=== PATIENT | female | born 1975 | race Hispanic/Latino ===

== ENCOUNTER 2020-02-25 00:03 | Emergency (ER) | payer OTHER ==
[~2020-02-25] VITALS: Ht 165.1 cm; Wt 147.4 kg
--- NOTE | 2020-02-25 00:23 | NUR ---
PT RETURNED TO RM 3. AWAITING XR RESULTS
[2020-02-25] MEDS ORDERED: XANAX0.5 MG (00:25)
[2020-02-25] MEDS ORDERED: LABETALOL HCL100 MG PO (00:25)
[2020-02-25] MEDS ORDERED: LEXAPRO10 MG PO (00:27)
--- NOTE | 2020-02-25 00:39 | NUR ---
TOLD PT TO TAKE ANOTHER OF HER XANAX 0.5 SHE IS STILL HAVING PROBLEMS WITH HER ANXIETY. PT'S IS DRIVING . AWAITING XR RESULTS
--- OUTSIDE RECORDS SUMMARY | 2020-02-25 00:39 | XMS REPORT | Continuity of Care Document ---
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 Role Phone [employer] Unavailable Un available Problems Problem Status Onset Date Classification Date Reported Comments Source RIGHT HAND CARPAL TUNNEL Active 07/14/2016 [facility] VAGINAL DEL Active 11/29/2015 [facility] Discharge Diagnosis: Atrial fibrillation 11/05/2015 11/08/2015 [facility] PALPITATIONS Active 11/05/2015 [facility] Patient currently (finding) Resolved 06/07/2014 Problem 02/25/2017 [facility] CHILDBIRTH Active 04/13/2014 [facility] INDUCTION Active 04/13/2014 [facility] Discharge Diagnosis: beta charlene withdr awal/rebound; palpitations/IUP 10/24/2013 10/26/2013 [facility] RAPID HEART RATE Active 10/24/2013 [facility] Overweight (finding) Active 05/04/2013 Problem 02/25/2017 Data migrated from [employer] on 12/10. [facility] Bronchitis (disorder) Resolved 12/15/2012 Problem 02/25/2017 Data migrated from [employer] on 01/28. [facility] OTHER Active 10/13/2012 [facility] ANXIETY Active 01/16/2012 [facility] Panic disorder (disorder) Acti ve 11/06/2011 Problem 02/25/2017 Data migrated from [employer] on 12/10. [facility] Low back strain (disorder) Res olved 06/28/2011 Problem 02/25/2017 Data migrated from [employer] on 01/28. [facility] HIGH BLOOD PRESSURE Active 03/24/2011 [facility] Acute bronchitis with bronchospasm (disorder) Resolved 03/22/2011 Problem 02/25/2017 Data migrated from [employer] on 01/28/15. [facility] INCOMPLETE Active 10/07/2010 [facility] VAGINAL BLEEDING Active 10/06/2010 [facility] AB 632/CPT 12287 Active 10/04/2010 [facility] LESS THAN 14 WEEKS-- BRADYCARDIA Active 09/28/[address] VAG BLEED Active 06/16/2010 [facility] Acute maxillary sinusitis (disorder) Resolved 02/27/2009 Problem 02/25/2017 Data migrated from [employer] on 01/28. Data migrated from [employer] on 01/28/15. [facility] [place] Allergic rhinitis (disorder) A ctive 11/30/2008 Problem 02/25/2017 Data migrated from [employer] on 12/10. [facility] Fever (finding) Resolved 11/30/2008 Problem 02/25/2017 Data migrated from [employer] on 01/27. [facility] Pharyngitis (disorder) Resolved 11/30/2008 Problem 02/25/2017 Data migrated from [employer] on 01/28. [facility] Upper respiratory infection (disorder) Resolved 11/30/2008 Problem 02/25/2017 Data migrated from [employer] on 01/28/15. Data migrated from [employer] on 01/28/15. Data migrated from [employer] on 01/28/15. [facility] Acute bronchitis (disorder) Re solved 07/23/2007 Problem 02/25/2017 Data migrated from [employer] on 01/28. [facility] Gastroesophageal reflux disease (disorder) Active 04/30/2007 Problem 02/25/2017 Data migrated from [employer] on 12/10/14. [facility] Anxiety (finding) Active Problem 02/25/2017 [facility] [place] Benign hypertension (disorder) Active Problem Data migrated from [employer] on 12/10. [facility] Depression - motion (qualifier value) Active Problem [facility] [place] Hypertensive disorder, systemic arterial (disorder) Active Problem 02/25/2017 [facility] Irregular heart beat (finding) Resolved Problem [facility] Anxiety Active Problem 10/15/2012 [facility] Depression Active Problem 10/15/2012 [facility] HTN - Hypertension Active Problem 10/15/2012 [facility] PROLONGED PREG-UNSP Active [facility] Medications Medication Details Route Status Patient Instructions Ordering Provider Order Date Source Labetalol Notes: (Same as: Ab Francis) Push over 2 minutes Give bolus over 2-3 minutes. Inactive 11/05/2015 [facility] Saline Flush 0.9% Notes: (Same as: BD Posiflush) Inactive 11/05/2015 [facility] Sodium Chloride 0.154 MEQ/ML Injectable Solution 1,000 mL, 1000 ml/hr, Infuse Over: 1 hr, Route: IV, 1,000, Drug form: INJ, ONCE, Priority: STAT, Dosing Weight 130 kg, Start date: 11/05/15 6:28:00 CDT, Duration: 1 doses or times, Stop date: 11/05/15 6:28:00 CDT Inactive 11/05/2015 [facility] Methyldopa 500 MG Oral Tablet Notes: May interfere w/enteral feedings. (Same as:Aldomet) Inactive 06/09/2014 [facility] nter ferrous sulfate 325 MG Oral Tablet 325 mg = 1 tab, PO, TID, # 90 tab, 0 Refill(s) Active 06/09/2014 [facility] nter Docusate Sodium 100 MG Oral Capsule [Colace] 100 mg = 1 cap, PO, BID, # 60 cap, 0 Refill(s) Active 06/09/2014 [facility] nter ibuprofen 800 mg oral tablet 8 00 mg = 1 tab, PO, Q8H, Pain Score 6-10, # 30 tab, 0 Refill(s) Active 06/09/2014 [facility] nter Methyldopa 500 MG Oral Tablet 500 mg = 1 tab, PO, BID, # 60 tab, 0 Refill(s) Active 06/09/2014 [facility] Docusate Sodium 100 MG Oral Capsule [Colace] Notes: (Same as: Colace) (Do Not Crush) No Longer Active 06/08/2014 [facility] Multivitamins oral tablet 1 tab, Route: PO, Drug Form: TAB, Dosing Weight 122.727, kg, Daily, Start date: 06/08/14 9:00:00, Duration: 30 day, Stop date: 07/07/14 9:00:00 No Longer Active 06/08/2014 [facility] Penicillin G 2,500,000 unit, 5 0 mL, Route: IVPB, Drug form: INJ, ABXQ4H, Dosing Weight 122.727, kg, Start date: 06/07/14 22:00:00 No Longer Active 06/08/2014 [facility] M-M-R II Notes: (Same as: M-M- R II) (dshjaya-bovjr-zqbdmar virus vaccine 0.5 ml INJ VL) GIVE PRIOR TO DISCHARGE No Longer Active 06/08/2014 [facility] Ibuprofen Notes: (Same as: Mot rin) "Do Not Crush" Take with food. No Longer Active 06/08/2014 [facility] Acetaminophen 325 MG / Hydrocodone Lety trate 5 MG Oral Tablet Notes: (Same as: [place] 325/5) Do not ex ceed 4gm/day of acetaminophen. No Longer Active 06/08/2014 [facility] Acetaminophen 325 MG / Hydrocodone Lety trate 10 MG Oral Tablet Notes: Do not exceed 4gm/day of acetamin ophen. (Same as: [place] 325/10) No Longer Active 06/08/2014 [facility] Acetaminophen Notes: Do not ex ceed 4 gm/day. (Same as: Tylenol) No Longer Active 06/08/2014 [facility] zolpidem Notes: (Same As: Ambi en) No Longer Active 06/08/2014 [facility] Methylergonovine Notes: (Same as:Methergine) No Longer Active 06/08/2014 [facility] lanolin topical 1 appl, Route: TOP, PRN, Drug form: OINT, PRN Other -See Comment, Start date: 06/07/14 19:51:00, Duration: 30 day, Stop date: 07/07/14 19:50:00 N o Longer Active 06/08/2014 [facility] nter Benzocaine 200 MG/ML Topical [place] [Dermoplast] Notes: (Same As: Dermoplast) FOR EXTERNAL USE ONLY No Longer Active 06/08/2014 [facility] Promethazine Notes: Do not giv e IV push. (Same as: Phenergan) No Longer Active 06/08/2014 [facility] Ondansetron Notes: (Same as: Z ofran) No Longer Active 06/08/2014 [facility] Bisacodyl Notes: (Same As: Dul colax, Correctol) (Do Not Crush) "Do Not Crush" No Longer Active 06/08/2014 [facility] nter Oxytocin 0.03 UNT/ML Injectable Solution Notes: (Same as: OXYTOCIN-D5LR) No Longer Active 06/08/2014 [facility] nter Lactated Ringers IV 1,000 mL 1 ,000 mL, Rate: 100 ml/hr, Infuse over: 10 hr, Route: IV, Dosing Weight 122.727 kg, Total Volume: 1,000, Start date: 06/07/14 19:51:00, Duration: 30 day, Stop date: 07/07/14 19:50:00 No Longer Active 06/08/2014 [facility] Penicillin G Potassium [id number] UNT/ML In jectable Solution Notes: (Same as: Pfizerpen) Inactive 06/08/2014 [facility] nter Oxytocin 0.03 UNT/ML Injectable Solution Notes: (Same as: OXYTOCIN-D5LR) No Longer Active 06/07/2014 [facility] nter Carboprost Notes: (Same As: He mabate) No Longer Active 06/07/2014 [facility] Famotidine Notes: (Same as: Pe pcid) Can be dilute in 5- 10cc NS IVP: Slow IV push over at least 2 minutes. No Longer Active 06/07/2014 [facility] Misoprostol Notes: (Same as:Cy totec) Take with food No Longer Active 06/07/2014 [facility] Methylergonovine Notes: (Same as:Methergine) No Longer Active 06/07/2014 [facility] Citric Acid / sodium citrate N otes: (Same As: Bicitra, Cytra-2) Sodium citrate-citric acid (500-334 mg/5 mL): 1 mL contains sodium 1 mEq/mL and bicarbonate 1 mEq/mL No Longer Active 06/07/2014 [facility] nter Lidocaine Hydrochloride 10 MG/ML Injectable Solution Notes: (Same as: Xylocaine) No Longer Active 06/07/2014 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 nter Calcium Chloride 0.0014 MEQ/ML / Potassi um Chloride 0.004 MEQ/ML / Sodium Chloride 0.103 MEQ/ML / Sodium Lactate 0.028 MEQ/ML Injectable Solution 1,000 mL, 1,000 ml/hr, Infuse Over: 1 hr , Route: IV, 1,000, Drug form: INJ, ONCE, Dosing Weight 122.727 kg, Start date: 06/07/14 14:33:00, Stop date: 06/07/14 14:33:00, Bolus for regional anesthesia per unit protocol No Longer Active 06/07/2014 [facility] Lactated Ringers IV 1,000 mL 1 ,000 mL, Rate: 125 ml/hr, Infuse over: 8 hr, Route: IV, Dosing Weight 122.727 kg, Total Volume: 1,000, Start date: 06/07/14 14:33:00, Duration: 30 day, Stop date: 07/07/14 14:32:00 No Longer Active 06/07/2014 [facility] Magnesium Sulfate 1 gm, 50 mL, Route: IVPB, Drug form: INJ, ONCE, Dosing Weight 122.727, kg, Start date: 10/24/13 14:19:00, Stop date: 10/24/13 14:19:00 Inactive 10/24/2013 [facility] Labetalol Notes: (Same as: Annie Francisdacindy) Push over 2 minutes Give bolus over 2-3 minutes. Inactive 10/24/2013 [facility] Sodium Chloride 0.154 MEQ/ML Injectable Solution 1,000 mL, 1,000 ml/hr, Infuse Over: 1 hr, Route: IV, 1,000, Drug form: INJ, ONCE, Priority: STAT, Dosing Weight 122.727 kg, Start date: 10/24/13 12:26:00, Duration: 1 doses or times, Stop date: 10/24/13 12:26:00 Inactive 10/24/2013 [facility] Sodium Chloride 0.154 MEQ/ML Injectable Solution 500 mL, 1000 ml/hr, Infuse Over: 0.5 hr, Route: IV, 500, Drug form: INJ, ONCE, Priority: STAT, Dosing Weight 122.727 kg, Start date: 10/24/13 10:49:00, Duration: 1 doses or times, Stop date: 10/24/13 10:49:00 Inactive 10/24/2013 [facility] Zofran 4 mg, Route: IVP, Drug form: INJ, ONCE, Dosing Weight 122.727, kg, Priority: STAT, Start date: 10/24/13 5:52:00, Stop date: 10/24/13 5:52:00 Inactive 10/24/2013 [facility] Sodium Chloride 0.154 MEQ/ML Injectable Solution 1,000 mL, 1,000 ml/hr, Infuse Over: 1 hr, Route: IV, ONCE, Priority: STAT, Dosing Weight 122.727 kg, Start date: 10/24/13 5:52:00, Duration: 1 doses or times, Stop date: 10/24/13 5:52:00 Inactive 10/24/2013 [facility] Sodium Chloride 0.9% (Bolus) IV 1000 mL 1,000 mL, Rate: 1,000 ml/hr, Infuse over: 1 hr, Route: IV, kg, Total Volume: 1,000, Bolus Dose, Priority: STAT, Start date: 01/16/12 9:11:00, Duration: 1 doses or times, Stop date: 01/16/12 10:10:00 IV No Longer Active [facility] 01/16/2012 [facility] Allergies, Adverse Reactions, Alerts Substance Category Reaction Severity Reaction type Status Date Reported Comments Source minocycline<sup>1</sup> Assert ion Drug aller gy Active 04/29/2007 Data migrated from [employer] on 11/10/14. Originally documented as MINOCYCLINE. RYAN [facility] [place] minocycline Assertion Drug allergy Active [facility] Immunizations Immunization Date Given Site Status Last Updated Comments Source measles/mumps/rubella virus vaccine 06/10/2014 Right Upper Arm completed [facility] [place] Results Order Name Results Value Reference Range Date Interpretation Comments Source URINE AND STOOL UA Urobilinogen <=1.0 mg/dL 0.1 - 1.0 11/05/2015 [facility] URINE AND STOOL UA pH 7.0 5.0 - 8.0 11/05/2015 [facility] URINE AND STOOL UA Spec Grav 1.001 <=1.030 11/05/2015 [facility] URINE AND STOOL UA Turbidity Clear (11/05/15 6:55 AM) Clear 11/05/2015 [facility] URINE AND STOOL UA Glucose Negative mg/dL Negative mg/dL 11/05/2015 [facility] URINE AND STOOL UA Protein Negative mg/dL Negative mg/dL 11/05/2015 [facility] URINE AND STOOL UA Blood Small *ABN* (11/05/15 6:55 AM) Negative 11/05/2015 [facility] URINE AND STOOL UA Bili Negative *NA* (11/05/15 6:55 AM) Negative 11/05/2015 [facility] URINE AND STOOL UA Ketones Negative mg/dL Negative mg/dL 11/05/2015 [facility] URINE AND STOOL UA Leuk Est Negative (11/05/15 6:55 AM) Negative 11/05/2015 [facility] URINE AND STOOL UA Nitrite Negative (11/05/15 6:55 AM) Negative 11/05/2015 [facility] URINE AND STOOL UA RBC <1 0 - 2 11/05/2015 [facility] URINE AND STOOL UA WBC <1 0 - 5 11/05/2015 [facility] URINE AND STOOL UA Sq Epi Occasional /LPF Few /LPF 11/05/2015 [facility] URINE AND STOOL UA Hyal Cast 1 0 - 2 11/05/2015 [facility] URINE AND STOOL UA Color Ltyellow 11/05/2015 [facility] CARDIAC ENZYMES CK MB Index 0.5 0.0 - 2.5 11/05/2015 [facility] CARDIAC ENZYMES Troponin-I 0.03 0.00 - 0.40 11/05/2015 [facility] CARDIAC ENZYMES Total CK 215 12 - 191 11/05/2015 [facility] CARDIAC ENZYMES CK MB 1.0 0.5 - 3.6 11/05/2015 [facility] Magnesium Lvl 1.9 1.8 - 2.4 11/05/2015 [facility] Phosphorus 2.0 2.5 - 4.5 11/05/2015 [facility] CHEM PANEL eGFR 116 11/05/2015 Result Comment: The eGFR is calculated using the CKD-EPI formula. In most young, healthy individuals the eGFR will be >90 mL/min/1.73m2. The eGFR declines with age. An eGFR of 60-89 may be normal in some populations, particularly the elderly, for whom the CKD-EPI formula has not been extensively validated. Use of the eGFR is not recommended in the following populations:

Individuals with unstable creatinine concentrations, including patients and those with serious co-morbid conditions.

Patients with extremes in muscle mass or diet.

The data above are obtained from the National Kidney Disease Education Program (NKDEP) which additionally recommends that when the eGFR is used in patients with extremes of body mass index for purposes of drug dosing, the eGFR should be multiplied by the estimated BMI. [facility] AST 24 0 - 37 11/05/2015 [facility] AGAP 13.2 10.0 - 20.0 11/05/2015 [facility] ALT 40 0 - 65 11/05/2015 [facility] CHEM PANEL Bili Total 0.1 0.2 - 1.3 11/05/2015 [facility] Alk Phos 85 39 - 136 11/05/2015 [facility] Globulin 4.2 2.0 - 4.0 11/05/2015 [facility] CHEM PANEL B/C Ratio 12 6 - 25 11/05/2015 [facility] CHEM PANEL A/G Ratio 0.8 0.7 - 1.6 11/05/2015 [facility] BUN 7 7 - 22 11/05/2015 [facility] Potassium Lvl 3.2 3.5 - 5.1 11/05/2015 [facility] Glucose Lvl 138 70 - 99 11/05/2015 [facility] Sodium Lvl 140 135 - 145 11/05/2015 [facility] CHEM PANEL Creatinine Lvl 0.60 0.50 - 1.40 11/05/2015 [facility] PAN[facility] Chloride Lvl 107 95 - 109 11/05/2015 [facility] Calcium Lvl 8.3 8.5 - 10.5 11/05/2015 [facility] CHEM PANEL CO2 23 24 - 32 11/05/2015 [facility] CHEM PANEL Albumin Lvl 3.5 3.5 - 5.0 11/05/2015 [facility] CHEM PANEL Total Protein 7.7 6.4 - 8.4 11/05/2015 [facility] ENDOCRINOLOGY S Preg Po sitive *NA* (11/05/15 6:42 AM) Negative 11/05/2015 [facility] HEMATOLOGY Basophils # 0.1 0.0 - 0.2 11/05/2015 [facility] HEMATOLOGY Monocytes # 0.6 0.0 - 0.8 11/05/2015 [facility] HEMATOLOGY Eosinophils # 0.2 0.0 - 0.5 11/05/2015 [facility] HEMATOLOGY Monocytes 6.5 2.0 - 12.0 11/05/2015 [facility] HEMATOLOGY Lymphocytes 25.9 20.0 - 40.0 11/05/2015 [facility] HEMATOLOGY Segs 64.8 45.0 - 75.0 11/05/2015 [facility] HEMATOLOGY Eosinophils 2.1 0.0 - 4.0 11/05/2015 [facility] Lymphocytes # 2.3 1.0 - 5.5 11/05/2015 [facility] Segs-Bands # 5.8 1.5 - 8.1 11/05/2015 [facility] HEMATOLOGY Basophils 0.7 0.0 - 1.0 11/05/2015 [facility] HEMATOLOGY MPV 8.5 7.4 - 10.4 11/05/2015 [facility] Hct 39.7 36.0 - 48.0 11/05/2015 [facility] Hgb 12.6 12.0 - 16.0 11/05/2015 [facility] HEMATOLOGY RBC 4.55 4.20 - 5.40 11/05/2015 [facility] WBC 9.0 3.7 - 10.4 11/05/2015 [facility] HEMATOLOGY Platelet 329 133 - 450 11/05/2015 [facility] HEMATOLOGY RDW 14.4 11.5 - 14.5 11/05/2015 [facility] MCHC 31.8 32.0 - 36.0 11/05/2015 [facility] MCH 27.7 27.0 - 31.0 11/05/2015 [facility] HEMATOLOGY MCV 87.1 80.0 - 98.0 11/05/2015 [facility] BLOOD BANK RESULTS Antibody Scrn Positive (06/07/14 3:10 PM) 06/07/2014 [facility] BLOOD BANK RESULTS ABO/Rh O POS 06/07/2014 [facility] BLOOD BANK RESULTS Path AMERICO Immunohematologic testing shows a positive Direct Antiglobulin Test (AMERICO) in this patient. The AMERICO is positive with anti-IgG only; complement fixation is not detected. The eluate prepared from circulating RBCs reacts with all cells tested, consistent with a warm-reactive IgG auto-antibody. Although weakly reactive DATs maybe idiopathic in nature, strongly positive DATs have been associated with various autoimmune disorders, hypergammaglobulinemia, certain malignancies, and following administration of specific medications. RBCs with a positive AMERICO can be expected to have decreased in vivo survival. Clinical correlation and monitoring for signs/symptoms of hemolysis are recommended, if clinically indicated. The patients electronic medical record has been reviewed for relevant information. I have reviewed the test results and concur with the resident's interpretation. CPT: 42307-NW 06/07/2014 [facility] BLOOD BANK RESULTS Path AB A weakly reactive IgG antibody has been detected in this patient's serum. This antibody does not demonstrate specificity against any of the major blood group antigens. It reacts weakly with 5 out 17 cells tested. Panreactivity is evident ficin treated cells. This could represent a nonspecific IgG antibody. The clinical significance of the antibody is undetermined at this point. Futher work-up to determinge the patient's own RBC phenotype is not applicable. Of note, the AMERICO was positive with IgG detected on circulating RBC's and the eluate was panreactive, these results could also be explained by the presence of the warm autoantibody begining to be present in the serum. Since warm auto-antibodies may be associated with decreased red cell survival and overt hemolysis, clinical correlation and hemolysis work-up are recommended, if clinically indicated Should RBC transfusion be required, crossmatch compatible RBCs will be issued. The patients electronic medical record has been reviewed for relevant information. I have reviewed the test results and concur with the resident's interpretation. CPT: 28240-ZR 06/07/2014 [facility] BLOOD BANK RESULTS Eluate Int Warm Auto 06/07/2014 [facility] BLOOD BANK RESULTS C3 Int Negative (06/07/14 3:10 PM) 06/07/2014 [facility] BLOOD BANK RESULTS AB Int Non-specific IgG Antibody 06/07/2014 [facility] BLOOD BANK RESULTS AMERICO Gel Int Positive (06/07/14 3:10 PM) 06/07/2014 [facility] HEMATOLOGY Eosinophils # 0.1 0.0 - 0.5 06/07/2014 [facility] HEMATOLOGY Segs-Bands # 8.5 1.5 - 8.1 06/07/2014 [facility] HEMATOLOGY Lymphocytes # 2.2 1.0 - 5.5 06/07/2014 [facility] HEMATOLOGY Monocytes # 0.6 0.0 - 0.8 06/07/2014 [facility] HEMATOLOGY Monocytes 5.0 2.0 - 12.0 06/07/2014 [facility] HEMATOLOGY Basophils 0.4 0.0 - 1.0 06/07/2014 [facility] HEMATOLOGY Eosinophils 1.0 0.0 - 4.0 06/07/2014 [facility] HEMATOLOGY Segs 74.3 45.0 - 75.0 06/07/2014 [facility] HEMATOLOGY Lymphocytes 19.3 20.0 - 40.0 06/07/2014 [facility] HEMATOLOGY RDW 14.1 11.5 - 14.5 06/07/2014 [facility] HEMATOLOGY MCHC 33.8 32.0 - 36.0 06/07/2014 [facility] HEMATOLOGY MPV 10.5 7.4 - 10.4 06/07/2014 [facility] HEMATOLOGY Platelet 231 133 - 450 06/07/2014 [facility] HEMATOLOGY MCH 30.2 27.0 - 31.0 06/07/2014 [facility] HEMATOLOGY MCV 89.4 80.0 - 98.0 06/07/2014 [facility] HEMATOLOGY RBC 3.69 4.20 - 5.40 06/07/2014 [facility] HEMATOLOGY Hct 33.0 36.0 - 48.0 06/07/2014 [facility] HEMATOLOGY Hgb 11.1 12.0 - 16.0 06/07/2014 [facility] HEMATOLOGY WBC 11.5 3.7 - 10.4 06/07/2014 [facility] IMMUNOLOGY Hep Bs Ag Negat alberta *NA* (06/07/14 3:10 PM) Negative 06/07/2014 [facility] IMMUNOLOGY Treponemal Scr Non R eactive *NA* (06/07/14 3:10 PM) Non Reactive 06/07/2014 [facility] HEMATOLOGY D-Dimer 0.65 10/24/2013 <sup>3</sup>Interpretive Data: In [facility], quantitative D-Dimer is generally greater than
0.66 ug/mL FEU. Values of quantitative D-Dimer less than
0.40 ug/mL FEU have been reported to be associated with a low
probability of deep vein thrombosis/pulmonary embolism.
This test alone should not be used to rule out DVT/PE. [facility] CHEM PANEL Magnesium Lvl 1.5 1.8 - 2.4 10/24/2013 [facility] CHEM PANEL eGFR 112 10/24/2013 <sup>1</sup>Result Comment: The eGFR is calculated using the CKD-EPI formula. In most young, healthy individuals the eGFR will be >90 mL/min/1.73m2. The eGFR declines with age. An eGFR of 60-89 may be normal in some populations, particularly the elderly, for whom the CKD-EPI formula has not been extensively validated. Use of the eGFR is not recommended in the following populations:& lt;br/>
Individuals with unstable creatinine concentrations, including patients and those with serious co-morbid conditions.

Patients with extremes in muscle mass or diet.

The data above are obtained from the National Kidney Disease Education Program (NKDEP) which additionally recommends that when the eGFR is used in patients with extremes of body mass index for purposes of drug dosing, the eGFR should be multiplied by the estimated BMI. [facility] CHEM PANEL BUN 11 7 - 22 10/24/2013 [facility] CHEM PANEL Creatinine Lvl 0.7 0.5 - 1.4 10/24/2013 [facility] CHEM PANEL Glucose Lvl 122 70 - 99 10/24/2013 <sup>2</sup>Interpretive Data: Adult ref erence range values reflect the clinical guidelines
of the [place] [employer]. [facility] CHEM PANEL Sodium Lvl 138 135 - 145 10/24/2013 [facility] CHEM PANEL Potassium Lvl 3.6 3.5 - 5.1 10/24/2013 [facility] CHEM PANEL Chloride Lvl 106 95 - 109 10/24/2013 [facility] CHEM PANEL CO2 26 24 - 32 10/24/2013 [facility] CHEM PANEL Calcium Lvl 9.1 8.5 - 10.5 10/24/2013 [facility] CHEM PANEL AGAP 9.6 10.0 - 20.0 10/24/2013 [facility] HEMATOLOGY MCV 90.1 81.0 - 99.0 10/24/2013 [facility] HEMATOLOGY Hct 40.2 36.0 - 48.0 10/24/2013 [facility] Hgb 13.7 12.0 - 16.0 10/24/2013 [facility] RBC 4.46 4.20 - 5.40 10/24/2013 [facility] WBC 12.1 3.7 - 10.4 10/24/2013 [facility] MPV 9.0 7.4 - 10.4 10/24/2013 [facility] Platelet 361 133 - 450 10/24/2013 [facility] RDW 13.8 11.5 - 14.5 10/24/2013 [facility] MCHC 34.1 32.0 - 36.0 10/24/2013 [facility] MCH 30.8 27.0 - 31.0 10/24/2013 [facility] Basophils # 0.1 0.0 - 0.2 10/24/2013 [facility] HEMATOLOGY Eosinophils # 0.2 0.0 - 0.5 10/24/2013 [facility] HEMATOLOGY Monocytes # 0.7 0.0 - 0.8 10/24/2013 [facility] Lymphocytes # 2.5 1.0 - 5.5 10/24/2013 [facility] HEMATOLOGY Segs-Bands # 8.6 1.5 - 8.1 10/24/2013 [facility] Lymphocytes 20.8 20.0 - 40.0 10/24/2013 [facility] HEMATOLOGY Segs 71.1 45.0 - 75.0 10/24/2013 [facility] Basophils 0.4 0.0 - 1.0 10/24/2013 [facility] Eosinophils 2.1 0.0 - 4.0 10/24/2013 [facility] Monocytes 5.6 2.0 - 12.0 10/24/2013 [facility] THYROID PANEL TSH 1.670 0.360 - 3.740 10/24/2013 [facility] URINE AND STOOL UA Color Ltyellow 10/24/2013 [facility] URINE AND STOOL UA Urobilinogen <=1.0 mg/dL 0.1 - 1.0 10/24/2013 [facility] URINE AND STOOL UA Turbidity Clear (10/24/13 4:00 AM) Clear 10/24/2013 [facility] URINE AND STOOL UA Spec Grav 1.006 <=1.030 10/24/2013 [facility] URINE AND STOOL UA pH 6.0 5.0 - 8.0 10/24/2013 [facility] URINE AND STOOL UA Ketones Trace mg/dL Negative mg/dL 10/24/2013 [facility] URINE AND STOOL UA Glucose Negative mg/dL Negative mg/dL 10/24/2013 [facility] URINE AND STOOL UA Blood Moderate *ABN* (10/24/13 4:00 AM) Negative 10/24/2013 [facility] URINE AND STOOL UA Bili Negative *NA* (10/24/13 4:00 AM) Negative 10/24/2013 [facility] URINE AND STOOL UA Nitrite Negative (10/24/13 4:00 AM) Negative 10/24/2013 [facility] URINE AND STOOL UA WBC 1 0 - 5 10/24/2013 [facility] URINE AND STOOL UA RBC 7 0 - 2 10/24/2013 [facility] URINE AND STOOL UA Bacteria Occasional /HPF None Seen /HPF 10/24/2013 [facility] URINE AND STOOL UA Sq Epi Occasional /LPF Few /LPF 10/24/2013 [facility] URINE AND STOOL UA Leuk Est Negative (10/24/13 4:00 AM) Negative 10/24/2013 [facility] URINE AND STOOL UA Protein Negative mg/dL Negative mg/dL 10/24/2013 [facility] URINE CHEM U Preg Posit alberta *ABN* (10/24/13 4:00 AM) Negative 10/24/2013 [facility] CHEMISTRY Globulin 4.6 2.0 - 4.0 01/16/2012 [facility] CHEMISTRY A/G Ratio 0.8 0.7 - 1.6 01/16/2012 Normal [facility] CHEMISTRY B/C Ratio 14 6 - 25 01/16/2012 Normal [facility] CHEMISTRY AGAP 11.1 10.0 - 20.0 01/16/2012 Normal [facility] CHEMISTRY Total Protein 8.5 6.4 - 8.4 01/16/2012 [facility] CHEMISTRY Calcium Lvl 9.0 8.5 - 10.5 01/16/2012 Normal [facility] CHEMISTRY ALT 60 0 - 65 01/16/2012 Normal [facility] CHEMISTRY Albumin Lvl 3.9 3.5 - 5.0 01/16/2012 Normal [facility] CHEMISTRY Bili Total 0.3 0.2 - 1.3 01/16/2012 Normal [facility] CHEMISTRY Alk Phos 72 39 - 136 01/16/2012 Normal [facility] CHEMISTRY AST 26 0 - 37 01/16/2012 Normal [facility] CHEMISTRY BUN 11 7 - 22 01/16/2012 Normal [facility] CHEMISTRY Sodium Lvl 140 135 - 145 01/16/2012 [facility] CHEMISTRY Chloride Lvl 107 95 - 109 01/16/2012 [facility] CHEMISTRY Creatinine Lvl 0.8 0.5 - 1.4 01/16/2012 Normal [facility] CHEMISTRY Potassium Lvl 4.1 3.5 - 5.1 01/16/2012 Normal [facility] CHEMISTRY CO2 26 24 - 32 01/16/2012 [facility] CHEMISTRY Glucose Lvl 104 70 - 99 01/16/2012 [facility] <sup>1</sup>Interpretive Data: Adult ref erence range values reflect the clinical guidelines
of the [place] [employer]. [facility] HEMATOLOGY Segs 69.7 45.0 - 75.0 01/16/2012 [facility] HEMATOLOGY Lymphocytes 23.8 20.0 - 40.0 01/16/2012 [facility] HEMATOLOGY Monocytes 4.0 2.0 - 12.0 01/16/2012 Normal [facility] HEMATOLOGY Eosinophils 2.0 0.0 - 4.0 01/16/2012 Normal [facility] HEMATOLOGY Basophils 0.5 0.0 - 1.0 01/16/2012 Normal [facility] HEMATOLOGY Segs-Bands # 6.7 1.5 - 8.1 01/16/2012 Normal [facility] HEMATOLOGY Monocytes # 0.4 0.0 - 0.8 01/16/2012 Normal [facility] HEMATOLOGY Lymphocytes # 2.3 1.0 - 5.5 01/16/2012 Normal [facility] HEMATOLOGY Basophils # 0.1 0.0 - 0.2 01/16/2012 Normal [facility] HEMATOLOGY Eosinophils # 0.2 0.0 - 0.5 01/16/2012 Normal [facility] HEMATOLOGY RBC 4.53 4.20 - 5.40 01/16/2012 [facility] HEMATOLOGY WBC 9.6 3.7 - 10.4 01/16/2012 [facility] HEMATOLOGY MPV 8.5 7.4 - 10.4 01/16/2012 [facility] HEMATOLOGY Hct 41.2 36.0 - 48.0 01/16/2012 [facility] HEMATOLOGY Hgb 14.0 12.0 - 16.0 01/16/2012 [facility] HEMATOLOGY MCV 91.1 81.0 - 99.0 01/16/2012 [facility] HEMATOLOGY MCHC 33.9 32.0 - 36.0 01/16/2012 [facility] HEMATOLOGY Platelet 354 133 - 450 01/16/2012 [facility] HEMATOLOGY RDW 13.6 11.5 - 14.5 01/16/2012 Normal [facility] HEMATOLOGY MCH 30.9 27.0 - 31.0 01/16/2012 [facility] IMMUNOLOGY CDC-HIV 1/2 Ab Negat alberta *NA* (01/16/2012 07:30:00) Negati ve 01/16/2012 NA [facility] CHEMISTRY U Preg Negati ve (01/16/2012 07:25:00) Negati ve 01/16/2012 [facility] URINALYSIS UA Protein 30 mg /dL *ABN* (01/16/2012 07:25:00) Negati ve 01/16/2012 ABN [facility] URINALYSIS UA Ketones Negat alberta *NA* (01/16/2012 07:25:00) Negati ve 01/16/2012 NA [facility] URINALYSIS UA Glucose Negat alberta (01/16/2012 07:25:00) Negati ve 01/16/2012 Normal [facility] URINALYSIS UA Blood Large *ABN* (01/16/2012 07:25:00) Negati ve 01/16/2012 ABN [facility] URINALYSIS UA Bili Negat alberta *NA* (01/16/2012 07:25:00) Negati ve 01/16/2012 NA [facility] URINALYSIS UA Leuk Est Negat alberta (01/16/2012 07:25:00) Negati ve 01/16/2012 Normal [facility] URINALYSIS UA Nitrite Negat alberta (01/16/2012 07:25:00) Negati ve 01/16/2012 Normal [facility] URINALYSIS UA Urobilinogen 0.2 0.1 - 1.0 01/16/2012 Normal [facility] URINALYSIS UA pH 6.0 5.0 - 8.0 01/16/2012 Normal [facility] URINALYSIS UA Spec Grav 1.010 <=1.030 01/16/2012 Normal [facility] URINALYSIS UA Turbidity Clear (01/16/2012 07:25:00) Clear 01/16/2012 Normal [facility] URINALYSIS UA Color Yello w *NA* (01/16/2012 07:25:00) Yellow 01/16/2012 NA [facility] URINALYSIS UA RBC 3-5 0 - 2 01/16/2012 NA [facility] URINALYSIS UA Bacteria Few / HPF (01/16/2012 07:25:00) None S een 01/16/2012 Normal [facility] URINALYSIS UA WBC 0 0 - 5 01/16/2012 Normal [facility] URINALYSIS UA Sq Epi Few / LPF (01/16/2012 07:25:00) Few 01/16/2012 Normal [facility] Pathology Reports No Data Provided for This Section Diagnostic Reports Report Value Date Source Chest 1view DX Study: Chest 1v iew DX Age: 40 years y/o Female Clinical Indication: Chest pain; Comparison: 10/24/2013 FINDINGS: Tubes and lines: None. LUNGS: The volume of the lungs is normal. There is no evidence of consolidation. Some subsegmental atelectasis may be present above the right hemidiaphragm superimposed on costal cartilage calcification. No pleural effusion is noted. The pulmonary vasculature is within normal limits. MEDIASTINUM: Cardiac silhouette is within normal limits of size. CHEST WALL: Unremarkable. SKELETON: The visualized osseous structures are unremarkable. IMPRESSION: 1. Minor right basilar subsegmental atel ectasis. 2. Otherwise negative chest. SL: [id number] 11/05/2015 [facility] Chest w contrast CT CT chest w ith contrast: COMPARISON: Chest one view 10/24/2013. TECHNIQUE: Contiguous transaxial images of the pulmonary arteries were performed at 2.5 mm intervals. This was followed by routine images of the chest at 5 mm intervals. FINDINGS: Evaluation is limited due to inadequate IV bolus and motion/respiratory artifact. No central pulmonary embolus is visualized. The aorta demonstrates normal morphology and their is no CT evidence for dissection or aneurysm. The lungs and pleural spaces are clear. The trachea and the proximal bronchi are patent. The cardiac size is normal. No significant lymphadenopathy is present in the anterior mediastinal, hilar or axillary regions. The esophagus is unremarkable in appearance. Fatty infiltration of liver. Visualized portion of the upper abdomen is otherwise within normal limits. IMPRESSION: No gross evidence for central pulmonary embolus. Evaluation is limited due to inadequate IV bolus. Fatty infiltration of liver. SL:13 10/24/2013 [facility] Chest 1view CXR, portable (1 v iew) HISTORY: Chest pain There are no prior studies available for comparison. FINDINGS: The lungs are clear. The heart and pulmonary vasculature are within normal limits. There are no pleural effusions. The regional skeleton is unremarkable. CONCLUSION: 1. No active disease. Coding: Chest 1view CPT code: 08423 SL: 12 Irving Stahl M.D. 10/24/2013 [facility] Consultation Notes No Data Provided for This Section Discharge Summaries No Data Provided for This Section History and Physicals No Data Provided for This Section Vital Signs Vital Sign Value Date Comments Source Respitory Rate 12 11/05/2015 [facility] Systolic (mm Hg) 119 11/05/2015 [facility] Diastolic (mm Hg) 79 11/05/2015 [facility] Temperature Oral (F) 98.2 F 11/05/2015 [facility] Respitory Rate 16 11/05/2015 [facility] Systolic (mm Hg) 128 11/05/2015 [facility] Diastolic (mm Hg) 83 11/05/2015 [facility] Temperature Oral (F) 98.2 F 11/05/2015 [facility] Systolic (mm Hg) 123 11/05/2015 [facility] Diastolic (mm Hg) 79 11/05/2015 [facility] Respitory Rate 18 11/05/2015 [facility] Heart Rate 102 11/05/2015 [facility] Heart Rate 133 11/05/2015 [facility] BMI Calculated 49.19 11/05/2015 [facility] Weight 134.091 11/05/2015 [facility] Temperature Oral (F) 98.2 F 11/05/2015 [facility] Height 165.1 cm 11/05/2015 [facility] Heart Rate 92 06/09/2014 [facility] Diastolic (mm Hg) 80 06/09/2014 [facility] Heart Rate 114 06/09/2014 [facility] Temperature Oral (F) 97.6 F 06/09/2014 [facility] Respitory Rate 18 06/09/2014 [facility] Systolic (mm Hg) 134 06/09/2014 [facility] Heart Rate 92 06/09/2014 [facility] Systolic (mm Hg) 122 06/09/2014 [facility] Diastolic (mm Hg) 79 06/09/2014 [facility] Temperature Oral (F) 98.2 F 06/09/2014 [facility] Respitory Rate 19 06/09/2014 [facility] Respitory Rate 18 06/09/2014 [facility] Systolic (mm Hg) 111 06/09/2014 [facility] Diastolic (mm Hg) 66 06/09/2014 [facility] Temperature Oral (F) 97.9 F 06/09/2014 [facility] BMI Calculated 46.26 06/08/2014 [facility] Weight 130 06/08/2014 [facility] Height 167.64 cm 06/08/2014 [facility] Diastolic (mm Hg) 79 10/24/2013 [facility] Systolic (mm Hg) 129 10/24/2013 [facility] Respitory Rate 20 10/24/2013 [facility] Heart Rate 88 10/24/2013 [facility] Diastolic (mm Hg) 81 10/24/2013 [facility] Systolic (mm Hg) 128 10/24/2013 [facility] Respitory Rate 21 10/24/2013 [facility] Heart Rate 86 10/24/2013 [facility] Diastolic (mm Hg) 76 10/24/2013 [facility] Systolic (mm Hg) 142 10/24/2013 [facility] Respitory Rate 22 10/24/2013 [facility] Heart Rate 98 10/24/2013 [facility] Temperature Oral (F) 98.0 F 10/24/2013 [facility] Temperature Oral (F) 98.4 F 10/24/2013 [facility] Weight 122.727 10/13/2012 [facility] Height 165.1 cm 10/13/2012 [facility] Weight 122.727 01/16/2012 [facility] Height 165.10 cm 01/16/2012 [facility] Encounters Location Location Details Encounter Type Encounter Number Reason For Visit Attending Provider ADM Date DC Date Status Source [facility] Emergency [id number] VAG BLEED GIANNI FELICIANO 06/16/2010 06/16/2010 Active [facility] Outpatient [id number] LESS TH AN 14 WEEKS-- BRADYCARDIA REGINA PARKER 10/03/2010 10/03/2010 Active [facility] Emergency [id number] VAGINAL BLEEDING POP NIRMALAER 10/06/2010 10/06/2010 Active [facility] Emergency [id number] INCOMPLETE ABORTI ON MARIE STONE 10/08/2010 10/08/2010 Active [facility] DS [id number] MISS AB 632/CPT 5 9820 REGINA PARKER 10/08/2010 10/08/2010 Active [facility] Emergency [id number] JC ARBOLEDAMARRY 03/24/2011 03/25/2011 Discharged [facility] Emergency [id number] YARELI DREW 01/16/2012 01/16/2012 Discharged [facility] Emergency [id number] BRYSON CASTRO 10/13/2012 10/13/2012 Discharged [facility] [id number] [place] 10/24/2013 10/24/2013 [facility] Inpatient [id number] Naye Byrd 06/07/2014 06/10/2014 [facility] [id number] 12 Norm Russell 11/05/2015 11/05/2015 [facility] OP Therapy Patients [id number] Elian Castro 01/24/2017 02/23/2017 [facility] Procedures Procedure Code Date Perfomer Comments Source D&C - Dilatation and curettage [id number] 06/13/2012 [facility] Assessment and Plan Assessment and Plan Date Source Extracted from:Title: OB Prog ress Note Author: Marsha Roberts MD Date: 06/09/14 Impression and Plan 39yo s/p term 1. PPD #2: AFVSS 2. CHTN - Stable, (120-140/88-105) on Al damet 500 mg po BID 3. Morbid obesity - BMI 52. Encouraged a mbulation 4. Rubella Nonimmune: for MMR, Rh+, S/P Flu and Tdap vaccines 5. Requesting circumcision for baby prio r to d/c 6. Breast/Undecided. Pt would like to wa it til 6wk pp visit 7. Anemia: 11.1 hgb, no symptoms. Will d/c home today on iron and colace 8. Dispo: discharge home today on iron, colace, and methlydopa. FU with in 6 wks Marsha Roberts, PGY1 Extracted from:Title: OB H&P Author: Ann Sifuentes DO Date: 06/07/14 Impression and Plan 39yo at 37w0d by LMP c/w doc 9wk US presents for scheduled IOL 2/2 cHTN 1. FHTs Category I 2. Induction of Labor - Cervix favorable - will start pitocin 2x2s now. Plan for AROM after good contraction pattern is established. 3. CHTN - BPs wnl since admission. On Me thyldopa 500mg BID during . Denies s/s of Pre-E. Continue to monitor closely. 4. GBS positive, will start penicillin p rophylaxis, 3T HIV neg 5. Morbid obesity - BMI 52 (failed early 1hr, passed 3hr) 6. Cephalic, EFW 3800g Ann Sifuentes, DO PGY1 06/10/2014 [facility] Plan of Care No Data Provided for This Section Social History Social History Date Source Social History TypeResponse Alcohol Past, Type Liquor. Frequency: 1-2 times per month. Previous treatment: None. Alcohol use interferes with work or home: No. Drinks more than intended: No. Others hurt by drinking: No. Smoking Status Never smoker; Exposure to Tobacco Smoke None; Cigarette Smoking Last 365 Days No; Reg Smoking Cessation Counseling No 06/07/2014 [facility] Social History TypeResponse Alcohol Past, Type Liquor. Frequency: 1-2 times per month. Previous treatment: None. Alcohol use interferes with work or home: No. Drinks more than intended: No. Others hurt by drinking: No. Smoking Status Never smoker; Exposure to Tobacco Smoke None; Cigarette Smoking Last 365 Days No; Reg Smoking Cessation Counseling No 06/07/2014 [facility] Social [facility] TypeResponse Alcohol Use: Past, Type: Liquor, Frequency: 1-2 times per month, Previous treatment: None, Has alcohol use interfered with work or home life? No, Do you ever drink more than intended? No, Has anyone been hurt or at risk by your drinking? No Smoking Status Never smoker, Exposure to Tobacco Smoke None, Cigarette Smoking Last 365 Days No, Reg Smoking Cessation Counseling No 06/07/2014 [facility] Family History No Data Provided for This Section Advance Directives No Data Provided for This Section Functional Status No Data Provided for This Section
--- OUTSIDE RECORDS SUMMARY | 2020-02-25 00:40 | XMS REPORT | Summary of Care ---
Author Author [facility] Address Unknown Phone Unavailable Encounter [facility]([place]) [id number] Date(s): 01/24/17 - 02/22/17 [facility] Discharge Disposition: Home or Self Care Attending Physician: Elian Castro MD Vital Signs No data available for this section Problem List Condition Effective Dates Status Health Status Informan t Acute bronchitis1 07/23/07 Resolved Acute bronchitis 03/22/11 Resolved with bronchospasm2 Acute maxillary 02/27/09 Resolved sinusitis3, 4 Allergic rhinitis5 11/30/08 Active Anxiety(Confirmed) Active Anxiety(Confirmed) Resolved Benign hypertension6 Active Bronchitis7 12/15/12 Resolved Depression(Confirmed Active ) Fever8 11/30/08 Resolved Gastroesophageal 04/30/07 Active reflux disease9 HTN - Active Hypertension(Confirm ed) Irregular heart Resolved beat(Confirmed) Low back yhyhpx12 06/28/11 Resolved Kudircglzy77 05/04/13 Active Panic rfydvlfi20 11/06/11 Active Xnjocmgjudj93 11/30/08 Resolved (Confirmed) 06/07/14 - 06/07/14 Resolved (Confirmed) < 06/13/11 Resolved (Confirmed) < 09/12/11 Resolved Upper respiratory 11/30/08 Resolved rmrrarths80, 15, 16 1Data migrated from [employer] on 01/28/15. 2Data migrated from [employer] on 01/28/15. 3Data migrated from [employer] on 01/28/15. 4Data migrated from [employer] on 01/28/15. 5Data migrated from [employer] on 12/10/14. 6Data migrated from [employer] on 12/10/14. 7Data migrated from [employer] on 01/28/15. 8Data migrated from [employer] on 01/27/15. 9Data migrated from [employer] on 12/10/14. 10Data migrated from [employer] on 01/28/15. 11Data migrated from [employer] on 12/10/14. 12Data migrated from [employer] on 12/10/14. 13Data migrated from [employer] on 01/28/15. 14Data migrated from [employer] on 01/28/15. 15Data migrated from [employer] on 01/28/15. 16Data migrated from [employer] on 01/28/15. Allergies, Adverse Reactions, Alerts Substance Reaction Severity Status minocycline1 Active 1Data migrated from [employer] on 11/10/14. Originally documented as MINOCYCLINE. HIVES Medications No data available for this section Results No data available for this section Immunizations Given and Recorded Vaccine Date Status Refusal Reason measles/mumps/rubella virus vaccine 06/09/14 [facility] Procedures Procedure Date Related Diagnosis Body Site D&C - Dilatation and curettage 06/13/12 Social History Social History Type Response Alcohol Past, Type Liquor. Frequen cy: 1-2 times per month. Previous treatment: None. Alcohol use interferes with work or home: No. Drinks more than intended: No. Others hurt by drinking: No. Smoking Status Never smoker; Exposure to T obacco Smoke None; Cigarette Smoking Last 365 Days No; Reg Smoking Cessation Counseli ng No Assessment and Plan No data available for this section
--- OUTSIDE RECORDS SUMMARY | 2020-02-25 00:40 | XMS REPORT | CCD ---
Author Author Auto Generated, [facility] Address Unknown Phone Unavailable Care Team Providers Care Patient Scheduling Manager Name Role Phone Karime Castro CP Allergies, Adverse Reactions, Alerts Substance Reaction Status minocycline Active Problem List Condition Effective Dates Status Anxiety Active Depression Active HTN - Hypertension Active Vital Signs Most recent to oldest [Reference Range]: 1 Height 165.1 cm (10/13/2012 12:36:00) Weight 122.727 kg (10/13/2012 12:36:00)
--- OUTSIDE RECORDS SUMMARY | 2020-02-25 00:40 | XMS REPORT | Summary of Care ---
Author Organization Unknown Address Unknown Phone Unavailable Encounter [facility]) [id number] Date(s): 10/24/13 - 10/24/13 [facility] [id number] Discharge Diagnosis: beta charlene withdrawal/rebound; palpitations/IUP Discharge Disposition: Home Physician Attending: Berlin Cline Reason for Visit RAPID HEART RATE Vital Signs 1 2 3 Most recent to oldest [Reference Range]: 98.0 DegF (10/24/13 5:30 AM) 98.4 DegF (10/24/13 2:15 AM) Temperature Oral [96.4-99.1 DegF] 129 mmHg (10/24/13 4:01 PM) 128 mmHg (10/24/13 3:00 PM) 142 mmHg *HI* (10/24/13 2:00 PM) Systolic Blood Pressure [90-140 mmHg] 79 mmHg (10/24/13 4:01 PM) 81 mmHg (10/24/13 3:00 PM) 76 mmHg (10/24/13 2:00 PM) Diastolic Blood Pressure [60-90 mmHg] 20 BRMIN (10/24/13 4:01 PM) 21 BRMIN *HI* (10/24/13 3:00 PM) 22 BRMIN *HI* (10/24/13 2:00 PM) Respiratory Rate [14-20 BRMIN] 88 bpm (10/24/13 4:01 PM) 86 bpm (10/24/13 3:00 PM) 98 bpm (10/24/13 2:00 PM) Peripheral Pulse Rate [60-100 bpm] Problem List Condition Effective Dates Status Health Status Informan t Anxiety(Confirmed) Active Anxiety(Confirmed) Resolved Depression(Confirmed Active ) HTN - Active Hypertension(Confirm ed) Irregular heart Resolved beat(Confirmed) Allergies, Adverse Reactions, Alerts Substance Reaction Severity Status minocycline Active Medications labetalol 20 mg, 4 mL, Route: IVP, Drug form: INJ, ONCE, Dosing Weight 122.727, kg, Priori ty: STAT, Start date: 10/24/13 13:03:00, Stop date: 10/24/13 13:03:00 Notes: (Same as: Normodyne, Trandate)Push over 2 minutes Give bolus over 2-3 mi nutes. Start Date: 10/24/13 Stop Date: 10/24/13 Status: Completed magnesium sulfate 1 gm, 50 mL, Route: IVPB, Drug form: INJ, ONCE, Dosing Weight 122.727, kg, Start date: 10/24/13 14:19:00, Stop date: 10/24/13 14:19:00 Start Date: 10/24/13 Stop Date: 10/24/13 Status: Completed NS (Bolus) IV - - 500 mL, 1000 ml/hr, Infuse Over: 0.5 hr, Route: IV, 500, Drug form: INJ, ONCE, P riority: STAT, Dosing Weight 122.727 kg, Start date: 10/24/13 10:49:00, Duration : 1 doses or times, Stop date: 10/24/13 10:49:00 Start Date: 10/24/13 Stop Date: 10/24/13 Status: Completed NS (Bolus) IV - - 1,000 mL, 1,000 ml/hr, Infuse Over: 1 hr, Route: IV, 1,000, Drug form: INJ, ONCE , Priority: STAT, Dosing Weight 122.727 kg, Start date: 10/24/13 12:26:00, Durat ion: 1 doses or times, Stop date: 10/24/13 12:26:00 Start Date: 10/24/13 Stop Date: 10/24/13 Status: Completed NS (Bolus) IV - - 1,000 mL, 1,000 ml/hr, Infuse Over: 1 hr, Route: IV, ONCE, Priority: STAT, Dosin g Weight 122.727 kg, Start date: 10/24/13 5:52:00, Duration: 1 doses or times, S top date: 10/24/13 5:52:00 Start Date: 10/24/13 Stop Date: 10/24/13 Status: Completed Zofran 4 mg, Route: IVP, Drug form: INJ, ONCE, Dosing Weight 122.727, kg, Priority: STA T, Start date: 10/24/13 5:52:00, Stop date: 10/24/13 5:52:00 Start Date: 10/24/13 Stop Date: 10/24/13 Status: Completed Results ELECTROLYTES Most recent to 1 oldest [Reference Range]: Sodium Lvl [135-145 138 mEq/L mEq/L] (10/24/13 4:00 AM) Potassium Lvl 3.6 mEq/L [3.5-5.1 mEq/L] (10/24/13 4:00 AM) Chloride Lvl [95-109 106 mEq/L mEq/L] (10/24/13 4:00 AM) CO2 [24-32 mEq/L] 26 mEq/L (10/24/13 4:00 AM) AGAP [10.0-20.0 9.6 mEq/L mEq/L] *LOW* (10/24/13 4:00 AM) CHEM PANEL Most recent to 1 oldest [Reference Range]: Creatinine Lvl 0.7 mg/dL [0.5-1.4 mg/dL] (10/24/13 4:00 AM) eGFR 112 mL/min/1.73m2 1 *NA* (10/24/13 4:00 AM) BUN [7-22 mg/dL] 11 mg/dL (10/24/13 4:00 AM) Glucose Lvl [70-99 122 mg/dL 2 mg/dL] *HI* (10/24/13 4:00 AM) Calcium Lvl 9.1 mg/dL [8.5-10.5 mg/dL] (10/24/13 4:00 AM) Magnesium Lvl 1.5 mg/dL [1.8-2.4 mg/dL] *LOW* (10/24/13 4:00 AM) 1Result Comment: The eGFR is calculated using the [...] from the National Kid[employer] Disease Education Program ( NKDEP) which additionally recommends that when the eGFR is used in patients with extremes of body mass index for purposes of drug dosing, the eGFR should be mul tiplied by the estimated BMI. 2Interpretive Data: Adult reference range values reflect the clinical guidelines of the [place] [employer]. THYROID PANEL Most recent to 1 oldest [Reference Range]: TSH [0.360-3.740 1.670 uIU/mL uIU/mL] (10/24/13 4:00 AM) URINE CHEM Most recent to 1 oldest [Reference Range]: U Preg [Negative] Positive *ABN* (10/24/13 4:00 AM) URINE AND STOOL Most recent to 1 oldest [Reference Range]: UA Turbidity [Clear] Clear (10/24/13 4:00 AM) UA Color Ltyellow *NA* (10/24/13 4:00 AM) UA pH [5.0-8.0] 6.0 (10/24/13 4:00 AM) UA Spec Grav 1.006 [<=1.030] (10/24/13 4:00 AM) UA Glucose [Negative Negative mg/dL mg/dL] *NA* (10/24/13 4:00 AM) UA Blood [Negative] Moderate *ABN* (10/24/13 4:00 AM) UA Ketones [Negative Trace mg/dL mg/dL] *ABN* (10/24/13 4:00 AM) UA Protein [Negative Negative mg/dL mg/dL] (10/24/13 4:00 AM) UA Urobilinogen <=1.0 mg/dL [0.1-1.0 mg/dL] *NA* (10/24/13 4:00 AM) UA Bili [Negative] Negative *NA* (10/24/13 4:00 AM) UA Leuk Est Negative [Negative] (10/24/13 4:00 AM) UA Nitrite Negative [Negative] (10/24/13 4:00 AM) UA WBC [0-5 /HPF] 1 /HPF (10/24/13 4:00 AM) UA RBC [0-2 /HPF] 7 /HPF *HI* (10/24/13 4:00 AM) UA Bacteria [None Occasional /HPF Seen /HPF] *NA* (10/24/13 4:00 AM) UA Sq Epi [Few /LPF] Occasional /LPF *NA* (10/24/13 4:00 AM) HEMATOLOGY Most recent to 1 oldest [Reference Range]: WBC [3.7-10.4 K/CMM] 12.1 K/CMM *HI* (10/24/13 4:00 AM) RBC [4.20-5.40 4.46 M/CMM M/CMM] (10/24/13 4:00 AM) Hgb [12.0-16.0 g/dL] 13.7 g/dL (10/24/13 4:00 AM) Hct [36.0-48.0 %] 40.2 % (10/24/13 4:00 AM) MCV [81.0-99.0 fL] 90.1 fL (10/24/13 4:00 AM) MCH [27.0-31.0 pg] 30.8 pg (10/24/13 4:00 AM) MCHC [32.0-36.0 34.1 g/dL g/dL] (10/24/13 4:00 AM) RDW [11.5-14.5 %] 13.8 % (10/24/13 4:00 AM) Platelet [133-450 361 K/CMM K/CMM] (10/24/13 4:00 AM) MPV [7.4-10.4 fL] 9.0 fL (10/24/13 4:00 AM) Segs [45.0-75.0 %] 71.1 % (10/24/13 4:00 AM) Lymphocytes 20.8 % [20.0-40.0 %] (10/24/13 4:00 AM) Monocytes [2.0-12.0 5.6 % %] (10/24/13 4:00 AM) Eosinophils [0.0-4.0 2.1 % %] (10/24/13 4:00 AM) Basophils [0.0-1.0 0.4 % %] (10/24/13 4:00 AM) Segs-Bands # 8.6 K/CMM [1.5-8.1 K/CMM] *HI* (10/24/13 4:00 AM) Lymphocytes # 2.5 K/CMM [1.0-5.5 K/CMM] (10/24/13 4:00 AM) Monocytes # [0.0-0.8 0.7 K/CMM K/CMM] (10/24/13 4:00 AM) Eosinophils # 0.2 K/CMM [0.0-0.5 K/CMM] (10/24/13 4:00 AM) Basophils # [0.0-0.2 0.1 K/CMM K/CMM] (10/24/13 4:00 AM) D-Dimer 0.65 ug/mL FEU 3 *NA* (10/24/13 5:51 AM) 3Interpretive Data: In DIC, quantitative D-Dimer is generally greater than 0.66 ug/mL FEU. Values of quantitative D-Dimer less than 0.40 ug/mL FEU have been reported to be associated with a low probability of deep vein thrombosis/pulmonary embolism. This test alone should not be used to rule out DVT/PE. Medications Administered During Your Visit No data available for this section Immunizations No data available for this section
--- OUTSIDE RECORDS SUMMARY | 2020-02-25 00:40 | XMS REPORT | CCD ---
Author Author Auto Generated, [facility] Address Unknown Phone Unavailable Care Team Providers Care Improvement Leader Name Role Phone Roxana Arriaga CP Allergies, Adverse Reactions, Alerts Substance Reaction Status minocycline Active Medications Medication Instructions Start Date End Date Status Sodium Chloride 0.9% 1,000 mL, Rate: 1,000 ml/hr, Infuse 11/201101/16/2012 Completed (Bolus) IV 1000 mL over: 1 hr, Route: IV, kg, Total Volume: 1,000, Bolus Dose, Priority: STAT, Start date: 01/16/12 9:11:00, Duration: 1 doses or times, Stop date: 01/16/12 10:10:00 Vital Signs Most recent to oldest [Reference Range]: 1 Height 165.10 cm (01/16/2012 07:22:00) Weight 122.727 kg (01/16/2012 07:22:00) Results URINALYSIS Most recent to oldest [Reference Range]: 1 UA Turbidity [Clear] Clear (01/16/2012 07:25:00) UA Color [Yellow] Yellow *NA* (01/16/2012 07:25:00) UA pH [5.0-8.0] 6.0 (01/16/2012 07:25:00) UA Spec Grav [<=1.030] 1.010 (01/16/2012 07:25:00) UA Glucose [Negative] Negative (01/16/2012 07:25:00) UA Blood [Negative] Large *ABN* (01/16/2012 07:25:00) UA Ketones [Negative] Negative *NA* (01/16/2012 07:25:00) UA Protein [Negative mg/dL] 30 mg/dL *ABN* (01/16/2012 07:25:00) UA Urobilinogen [0.1-1.0 EU/dL] 0.2 EU/dL (01/16/2012 07:25:00) UA Bili [Negative] Negative *NA* (01/16/2012 07:25:00) UA Leuk Est [Negative] Negative (01/16/2012 07:25:00) UA Nitrite [Negative] Negative (01/16/2012 07:25:00) UA WBC [0-5 /HPF] 0 /HPF (01/16/2012 07:25:00) UA RBC [0-2] 3-5 *NA* (01/16/2012 07:25:00) UA Bacteria [None Seen /HPF] Few /HPF (01/16/2012 07:25:00) UA Sq Epi [Few /LPF] Few /LPF (01/16/2012 07:25:00) CHEMISTRY Most recent to oldest [Reference Range]: 1 Sodium Lvl [135-145 mEq/L] 140 mEq/L (01/16/2012 07:30:00) Potassium Lvl [3.5-5.1 mEq/L] 4.1 mEq/L (01/16/2012 07:30:00) Chloride Lvl [95-109 mEq/L] 107 mEq/L (01/16/2012 07:30:00) CO2 [24-32 mEq/L] 26 mEq/L (01/16/2012 07:30:00) AGAP [10.0-20.0 mEq/L] 11.1 mEq/L (01/16/2012 07:30:00) Creatinine Lvl [0.5-1.4 mg/dL] 0.8 mg/dL (01/16/2012 07:30:00) BUN [7-22 mg/dL] 11 mg/dL (01/16/2012 07:30:00) B/C Ratio [6-25] 14 (01/16/2012 07:30:00) Glucose Lvl [70-99 mg/dL] 104 mg/dL 1 *HI* (01/16/2012 07:30:00) Total Protein [6.4-8.4 g/dL] 8.5 g/dL *HI* (01/16/2012 07:30:00) Albumin Lvl [3.5-5.0 g/dL] 3.9 g/dL (01/16/2012 07:30:00) Globulin [2.0-4.0 g/dL] 4.6 g/dL *HI* (01/16/2012 07:30:00) A/G Ratio [0.7-1.6] 0.8 (01/16/2012 07:30:00) Calcium Lvl [8.5-10.5 mg/dL] 9.0 mg/dL (01/16/2012 07:30:00) ALT [0-65 U/L] 60 U/L (01/16/2012:30:00) AST [0-37 U/L] 26 U/L (01/16/2012:30:00) Alk Phos [39-136 U/L] 72 U/L (01/16/2012:30:00) Bili Total [0.2-1.3 mg/dL] 0.3 mg/dL (01/16/2012:30:00) U Preg [Negative] Negative (01/16/2012 07:25:00) 1Interpretive Data: Adult reference range values reflect the clinical guidelines of the [place] [employer]. HEMATOLOGY Most recent to oldest [Reference Range]: 1 WBC [3.7-10.4 K/CMM] 9.6 K/CMM (01/16/2012 07:30:00) RBC [4.20-5.40 M/CMM] 4.53 M/CMM (01/16/2012:30:00) Hgb [12.0-16.0 g/dL] 14.0 g/dL (01/16/2012:30:00) Hct [36.0-48.0 %] 41.2 % (01/16/2012 07:30:00) MCV [81.0-99.0 fL] 91.1 fL (01/16/2012:30:00) MCH [27.0-31.0 pg] 30.9 pg (01/16/2012:30:00) MCHC [32.0-36.0 g/dL] 33.9 g/dL (01/16/2012 07:30:00) RDW [11.5-14.5 %] 13.6 % (01/16/2012 07:30:00) Platelet [133-450 K/CMM] 354 K/CMM (01/16/2012 07:30:00) MPV [7.4-10.4 fL] 8.5 fL (01/16/2012 07:30:00) Segs [45.0-75.0 %] 69.7 % (01/16/2012 07:30:00) Lymphocytes [20.0-40.0 %] 23.8 % (01/16/2012 07:30:00) Monocytes [2.0-12.0 %] 4.0 % (01/16/2012 07:30:00) Eosinophils [0.0-4.0 %] 2.0 % (01/16/2012 07:30:00) Basophils [0.0-1.0 %] 0.5 % (01/16/2012 07:30:00) Segs-Bands # [1.5-8.1 K/CMM] 6.7 K/CMM (01/16/2012 07:30:00) Lymphocytes # [1.0-5.5 K/CMM] 2.3 K/CMM (01/16/2012 07:30:00) Monocytes # [0.0-0.8 K/CMM] 0.4 K/CMM (01/16/2012 07:30:00) Eosinophils # [0.0-0.5 K/CMM] 0.2 K/CMM (01/16/2012 07:30:00) Basophils # [0.0-0.2 K/CMM] 0.1 K/CMM (01/16/2012 07:30:00) IMMUNOLOGY Most recent to oldest [Reference Range]: 1 CDC-HIV 1/2 Ab [Negative] Negative *NA* (01/16/2012 07:30:00)
--- OUTSIDE RECORDS SUMMARY | 2020-02-25 00:40 | XMS REPORT | Summary of Care ---
Author Organization Unknown Address Unknown Phone Unavailable Encounter [facility]) [id number] Date(s): 06/07/14 - 06/09/[address] Discharge Disposition: Home Physician Attending: Naye Byrd MD Physician Admitting: Naye Byrd MD Reason for Visit INDUCTION Vital Signs 1 2 3 Most recent to oldest [Reference Range]: 167.64 cm (06/08/14 2:54 AM) Height 97.6 DegF (06/09/14 4:21 PM) 98.2 DegF (06/09/14 9:24 AM) 97.9 DegF (06/09/14 12:25 AM) Temperature Oral [96.4-99.1 DegF] 134 mmHg (06/09/14 4:21 PM) 122 mmHg (06/09/14 9:24 AM) 111 mmHg (06/09/14 12:25 AM) Systolic Blood Pressure [90-140 mmHg] 80 mmHg (06/09/14 4:21 PM) 79 mmHg (06/09/14 9:24 AM) 66 mmHg (06/09/14 12:25 AM) Diastolic Blood Pressure [60-90 mmHg] 18 BRMIN (06/09/14 4:21 PM) 19 BRMIN (06/09/14 9:24 AM) 18 BRMIN (06/09/14 12:25 AM) Respiratory Rate [14-20 BRMIN] 92 bpm (06/09/14 5:00 PM) 114 bpm *HI* (06/09/14 4:21 PM) 92 bpm (06/09/14 9:24 AM) Peripheral Pulse Rate [60-100 bpm] 130 kg (06/08/14 2:54 AM) Weight 46.26 m2 (06/08/14 2:54 AM) Body Mass Index Problem List Condition Effective Dates Status Health Status Informan t Anxiety(Confirmed) Active Anxiety(Confirmed) Resolved Depression(Confirmed Active ) HTN - Active Hypertension(Confirm ed) Irregular heart Resolved beat(Confirmed) (Confirmed) 06/07/14 - 06/07/14 Resolved (Confirmed) < 06/13/11 Resolved (Confirmed) < 09/12/11 Resolved Allergies, Adverse Reactions, Alerts Substance Reaction Severity Status minocycline Active Medications acetaminophen 650 mg, 2 tab, Route: PO, Drug form: TAB, Q4H, Dosing Weight 122.727, kg, PRN He adache 1-3, Start date: 06/07/14 19:51:00, Duration: 30 day, Stop date: 07/07/14 19:50:00 Notes: Do not exceed 4 gm/day. (Same as: Tylenol) Start Date: 06/07/14 Stop Date: 06/09/14 Status: Discontinued acetaminophen-hydrocodone 325 mg-10 mg oral tablet 1 tab, Route: PO, Drug Form: TAB, Dosing Weight 122.727, kg, Q4H, PRN Pain Score 7-10, Start date: 06/07/14 19:51:00, Duration: 30 day, Stop date: 07/07/14 19:5 0:00 Notes: Do not exceed 4gm/day of acetaminophen. (Same as: Mulino 325/10) Start Date: 06/07/14 Stop Date: 06/09/14 Status: Discontinued acetaminophen-hydrocodone 325 mg-5 mg oral tablet 1 tab, Route: PO, Drug Form: TAB, Dosing Weight 122.727, kg, Q4H, PRN Pain Score 4-6, Start date: 06/07/14 19:51:00, Duration: 30 day, Stop date: 07/07/14 19:50 :00 Notes: (Same as: Mulino 325/5) Do not exceed 4gm/day of acetaminophen. Start Date: 06/07/14 Stop Date: 06/09/14 Status: Discontinued bisacodyl 15 mg, 3 tab, Route: PO, Drug form: ECTAB, Daily, Dosing Weight 122.727, kg, PRN Other -See Comment, Start date: 06/07/14 19:51:00, Duration: 30 day, Stop date: 07/07/14 19:50:00 Notes: (Same As: Dulcolax, Correctol) (Do Not Crush) "Do Not Crush" Start Date: 06/07/14 Stop Date: 06/09/14 Status: Discontinued bisacodyl 10 mg, 1 supp, Route: AL, Drug form: SUPP, PRN, Dosing Weight 122.727, kg, PRN O ther -See Comment, Start date: 06/07/14 19:51:00, Duration: 30 day, Stop date: 09/07/13 19:50:00 Notes: (Same As: Dulcolax, Bisco-Lax) Start Date: 06/07/14 Stop Date: 06/09/14 Status: Discontinued butorphanol 2 mg, 1 mL, Route: IVP, Drug form: INJ, Q2H, Dosing Weight 122.727, kg, PRN Pain Score 6-10, Start date: 06/07/14 14:33:00, Duration: 30 day, Stop date: 07/07/14 14:32:00 Notes: (Same As: Stadol) Start Date: 06/07/14 Stop Date: 06/08/14 Status: Discontinued butorphanol 1 mg, 1 mL, Route: IVP, Drug form: INJ, Q2H, Dosing Weight 122.727, kg, PRN Pain Score 1-5, Start date: 06/07/14 14:33:00, Duration: 30 day, Stop date: 07/07/14 14:32:00 Notes: (Same As: Stadol) Start Date: 06/07/14 Stop Date: 06/08/14 Status: Discontinued carboprost 250 microgram, 1 mL, Route: IM, Drug form: INJ, ONCALL, Dosing Weight 122.727, k g, Start date: 06/07/14 15:00:00, Duration: 30 day, Stop date: 07/07/14 14:59:00 Notes: (Same As: Hemabate) Start Date: 06/07/14 Stop Date: 06/08/14 Status: Discontinued citric acid-sodium citrate 30 mL, Route: PO, Drug Form: SOLN, Dosing Weight 122.727, kg, ONCALL, Start date : 06/07/14 15:00:00, Duration: 30 day, Stop date: 07/07/14 14:59:00 Notes: (Same As: Bicitra, Cytra-2) Sodium citrate-citric acid (500-334 mg/5 mL): 1 mL contains sodium 1 mEq/mL and bicarbonate 1 mEq/mL Start Date: 06/07/14 Stop Date: 06/08/14 Status: Discontinued Colace 100 mg oral capsule 100 mg, 1 cap, Route: PO, Drug form: CAP, BID, Dosing Weight 122.727, kg, Start date: 06/08/14 9:00:00, Duration: 30 day, Stop date: 07/07/14 17:00:00 Notes: (Same as: Colace) (Do Not Crush) Start Date: 06/08/14 Stop Date: 06/09/14 Status: Discontinued Colace 100 mg oral capsule 100 mg = 1 cap, PO, BID, # 60 cap, 0 Refill(s) Start Date: 06/09/14 Status: Ordered Dermoplast 20% topical spray 1 spray, Route: TOP, PRN, Drug form: SPRY, PRN Irritation, Start date: 06/07/14 19:51:00, Duration: 30 day, Stop date: 07/07/14 19:50:00 Notes: (Same As: Dermoplast) FOR EXTERNAL USE ONLY Start Date: 06/07/14 Stop Date: 06/09/14 Status: Discontinued famotidine 20 mg, 2 mL, Route: IVP, Drug form: INJ, ONCALL, Dosing Weight 122.727, kg, Star t date: 06/07/14 15:00:00, Duration: 30 day, Stop date: 07/07/14 14:59:00 Notes: (Same as: Pepcid)Can be dilute in 5-10cc NS IVP: Slow IV push over at le ast 2 minutes. Start Date: 06/07/14 Stop Date: 06/08/14 Status: Discontinued ibuprofen 600 mg, 1 tab, Route: PO, Drug form: TAB, Q6H, Dosing Weight 122.727, kg, PRN Pa in Score 1-5, Start date: 06/07/14 19:51:00, Duration: 30 day, Stop date: 19:50:00 Notes: (Same as: Motrin)"Do Not Crush" Take with food. Start Date: 06/07/14 Stop Date: 06/09/14 Status: Discontinued ibuprofen 800 mg, 1 tab, Route: PO, Drug form: TAB, Q8H, Dosing Weight 122.727, kg, PRN Pa in Score 6-10, Start date: 06/07/14 19:51:00, Duration: 30 day, Stop date: 07/07 19:50:00 Notes: (Same as: Motrin)"Do Not Crush" Take with food. Start Date: 06/07/14 Stop Date: 06/09/14 Status: Discontinued ibuprofen 800 mg oral tablet 800 mg = 1 tab, PO, Q8H, Pain Score 6-10, # 30 tab, 0 Refill(s) Start Date: 06/09/14 Status: Ordered iron sulfate (ferrous sulfate) 325 mg oral tablet 325 mg = 1 tab, PO, TID, # 90 tab, 0 Refill(s) Start Date: 06/09/14 Status: Ordered Lactated Ringers (Bolus) IV 1,000 mL, 1,000 ml/hr, Infuse Over: 1 hr, Route: IV, 1,000, Drug form: INJ, ONCE , Dosing Weight 122.727 kg, Start date: 06/07/14 14:33:00, Stop date: 06/07/14 1 4:33:00, Bolus for regional anesthesia per unit protocol Start Date: 06/07/14 Stop Date: 06/08/14 Status: Discontinued Lactated Ringers IV 1,000 mL 1,000 mL, Rate: 100 ml/hr, Infuse over: 10 hr, Route: IV, Dosing Weight 122.727 kg, Total Volume: 1,000, Start date: 06/07/14 19:51:00, Duration: 30 day, Stop d ate: 07/07/14 19:50:00 Start Date: 06/07/14 Stop Date: 06/09/14 Status: Discontinued Lactated Ringers IV 1,000 mL 1,000 mL, Rate: 125 ml/hr, Infuse over: 8 hr, Route: IV, Dosing Weight 122.727 k g, Total Volume: 1,000, Start date: 06/07/14 14:33:00, Duration: 30 day, Stop da te: 07/07/14 14:32:00 Start Date: 06/07/14 Stop Date: 06/08/14 Status: Discontinued lanolin topical 1 appl, Route: TOP, PRN, Drug form: OINT, PRN Other -See Comment, Start date: 19:51:00, Duration: 30 day, Stop date: 07/07/14 19:50:00 Start Date: 06/07/14 Stop Date: 06/09/14 Status: Discontinued lidocaine 1% 20 mL, Route: PERCUT, Drug Form: INJ, Dosing Weight 122.727, kg, PRN, PRN Other -See Comment, Start date: 06/07/14 14:33:00, Duration: 1 doses or times, Stop da te: Limited # of times Notes: (Same as: Xylocaine) Start Date: 06/07/14 Stop Date: 06/08/14 Status: Discontinued lidocaine 1% injectable solution 0.25 mL, Route: INTRADERM, Drug Form: INJ, Dosing Weight 122.727, kg, PRN, PRN O ther -See Comment, Start date: 06/07/14 14:33:00, Duration: 30 day, Stop date: 1 09/07/13 14:32:00 Notes: (Same as: Xylocaine) Start Date: 06/07/14 Stop Date: 06/08/14 Status: Discontinued M-M-R II 0.5 mL, Route: SUB-Q, Drug Form: PDR/INJ, Dosing Weight 122.727, kg, ONCALL, Giv e only if patient rubella non-immune, Start date: 06/07/14 20:00:00, Duration: 1 doses or times Notes: (Same as: M-M-R II) (eocmzwj-eeity-dxhbdsm virus vaccine 0.5 ml INJ VL) GIVE PRIOR TO DISCHARGE Start Date: 06/07/14 Stop Date: 06/09/14 Status: Discontinued methyldopa 500 mg oral tablet 500 mg, 2 tab, Route: PO, Drug form: TAB, BID, Dosing Weight 130, kg, Start date : 06/09/14 9:00:00, Duration: 30 day, Stop date: 07/08/14 17:00:00 Notes: May interfere w/enteral feedings. (Same as:Aldomet) Start Date: 06/09/14 Stop Date: 06/09/14 Status: Discontinued methyldopa 500 mg oral tablet 500 mg = 1 tab, PO, BID, # 60 tab, 0 Refill(s) Start Date: 06/09/14 Status: Ordered methylergonovine 0.2 mg, 1 mL, Route: IM, Drug form: INJ, PRN, Dosing Weight 122.727, kg, PRN Oth er -See Comment, Start date: 06/07/14 19:51:00, Duration: 30 day, Stop date: 19:50:00 Notes: (Same as:Methergine) Start Date: 06/07/14 Stop Date: 06/09/14 Status: Discontinued methylergonovine 0.2 mg, 1 mL, Route: IM, Drug form: INJ, ONCALL, Dosing Weight 122.727, kg, Star t date: 06/07/14 15:00:00, Duration: 30 day, Stop date: 07/07/14 14:59:00 Notes: (Same as:Methergine) Start Date: 06/07/14 Stop Date: 06/08/14 Status: Discontinued misoprostol 1,000 microgram, 5 tab, Route: AL, Drug form: TAB, ONCALL, Dosing Weight 122.727 , kg, Start date: 06/07/14 15:00:00, Duration: 1 doses or times Notes: (Same as:Cytotec) Take with food Start Date: 06/07/14 Stop Date: 06/08/14 Status: Discontinued ondansetron 4 mg, 2 mL, Route: IVP, Drug form: INJ, Q8H, Dosing Weight 122.727, kg, PRN Naus ea & Vomiting, Start date: 06/07/14 19:51:00, Duration: 30 day, Stop date: 07/07/14 19:50:00 Notes: (Same as: Zofran) Start Date: 06/07/14 Stop Date: 06/09/14 Status: Discontinued ondansetron 4 mg, 2 mL, Route: IVP, Drug form: INJ, Q8H, Dosing Weight 122.727, kg, PRN Naus ea & Vomiting, Start date: 06/07/14 14:33:00, Duration: 30 day, Stop date: 07/07/14 14:32:00 Notes: (Same as: Zofran) Start Date: 06/07/14 Stop Date: 06/08/14 Status: Discontinued oxytocin 30 units in D5LR 500mL (Titrate) IV 30 unit 30 unit, 500 mL, Rate: Titrate, Dosing Weight 122.727, kg, Route: IV, Total Volu me: 500 mL, Start date: 06/07/14 15:03:00, Duration: 2 day, Stop date: 06/09/14 15:02:00, Replace Every: 24 hr Notes: (Same as: OXYTOCIN-D5LR) Start Date: 06/07/14 Stop Date: 06/08/14 Status: Discontinued oxytocin 30 units in D5LR 500mL (Titrate) IV 30 unit 30 unit, 500 mL, Rate: 42 ml/hr, Infuse over: 11.9 hr, Dosing Weight 122.727, kg , Route: IV, Total Volume: 500 mL, Start date: 06/07/14 19:51:00, Duration: 2 do ses or times, Stop date: 06/08/14 19:38:00, Replace Every: 11.9 hr Notes: (Same as: OXYTOCIN-D5LR) Start Date: 06/07/14 Stop Date: 06/08/14 Status: Completed oxytocin 30 units in D5LR 500mL (Titrate) IV 30 unit 30 unit, 500 mL, Rate: 42 ml/hr, Infuse over: 11.9 hr, Dosing Weight 122.727, kg , Route: IV, Total Volume: 500 mL, Start date: 06/07/14 14:33:00, Duration: 2 da y, Stop date: 06/09/14 14:32:00, Replace Every: 11.9 hr Notes: (Same as: OXYTOCIN-D5LR) Start Date: 06/07/14 Stop Date: 06/08/14 Status: Discontinued penicillin G potassium 2,500,000 unit, 50 mL, Route: IVPB, Drug form: INJ, ABXQ4H, Dosing Weight 122.72 7, kg, Start date: 06/07/14 22:00:00 Start Date: 06/07/14 Stop Date: 06/08/14 Status: Discontinued penicillin G potassium 5,000,000 units injection 5,000,000 unit, Route: IVPB, Drug form: PDR/INJ, ONCALL, Dosing Weight 122.727, kg, Start date: 06/07/14 18:00:00 Notes: (Same as: Pfizermarek) Start Date: 06/07/14 Stop Date: 06/07/14 Status: Completed Multivitamins oral tablet 1 tab, Route: PO, Drug Form: TAB, Dosing Weight 122.727, kg, Daily, Start date: 06/08/14 9:00:00, Duration: 30 day, Stop date: 07/07/14 9:00:00 Start Date: 06/08/14 Stop Date: 06/09/14 Status: Discontinued promethazine 12.5 mg, 0.5 mL, Route: IM, Drug form: INJ, Q4H, Dosing Weight 122.727, kg, PRN Nausea & Vomiting, Start date: 06/07/14 19:51:00, Duration: 30 day, Stop date: 07/07/14 19:50:00 Notes: Do not give IV push. (Same as: Phenergan) Start Date: 06/07/14 Stop Date: 06/09/14 Status: Discontinued terbutaline 0.25 mg, 0.25 mL, Route: SUB-Q, Drug form: INJ, PRN, Dosing Weight 122.727, kg, PRN Other -See Comment, Start date: 06/07/14 14:33:00, Duration: 1 doses or time s, Stop date: Limited # of times Notes: DO NOT USE IN APPLIANCE WORKER AREA(Same As: Luis) Start Date: 06/07/14 Stop Date: 06/08/14 Status: Discontinued zolpidem 5 mg, 1 tab, Route: PO, Drug form: TAB, Bedtime, Dosing Weight 122.727, kg, PRN Sleep, Start date: 06/07/14 19:51:00, Duration: 30 day, Stop date: 07/07/14 19:5 0:00 Notes: (Same As: Sarah) Start Date: 06/07/14 Stop Date: 06/09/14 Status: Discontinued Results BLOOD BANK RESULTS Most recent to 1 oldest [Reference Range]: ABO/Rh O POS *Unknown* (06/07/14 3:10 PM) Antibody Scrn Positive (06/07/14 3:10 PM) AB Int Non-specific IgG Antibody *Unknown* (06/07/14 3:10 PM) Path AB A weakly reactive IgG antib bradford has been detected in this patient's serum. This antibody does not demonstrate specifici ty against any of the major blood group antigens. It reacts weakly with 5 out 1 7 cells tested. Panreactivity is evident ficin treated cells. This could represe nt a nonspecific IgG antibody. The clinical significance of the antibody i s undetermined at this point. Futher work-up to determinge the patient's own RBC phenotype is not applicable. Of note, the AMERICO was positive with IgG detected on circulating RBC's and the eluate was panreactive, these results c ould also be explained by the presence of the warm autoantibody begining to be pr esent in the serum. 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 The patient s electronic medical record has been re viewed for relevant information. I have reviewed the test results and co ncur with the resident's interpretation. CPT: 08183-ZL *NA* (06/07/14 3:10 PM) AMERICO Gel Int Positive (06/07/14 3:10 PM) C3 Int Negative (06/07/14 3:10 PM) Path AMERICO Immunohematologic testing s hows a positive Direct Antiglobulin Test (AMERICO) in this patient. The AMERICO is positive with anti-IgG only; complement fixation is not detected. The eluate prepared from circulating RBC s reacts with all cells tested, consist ent with a warm-reactive IgG auto-antibody. Alt morales weakly reactive AMERICO s maybe idiopathic in nature, strongly positive AMERICO s have been associated with various aut oimmune disorders, hypergammaglobulinemia, certain maligna ncies, and following administration of specific medications. RBC s with a positive AMERICO can be expected t o have decreased in vivo survival. Clinical correlation and monitoring for signs/symptoms of hemolysis are recommended, if clinically indicated. The patient s electronic medical record has been re viewed for relevant information. I have reviewed the test results and co ncur with the resident's interpretation. CPT: 43903-YV *NA* (06/07/14 3:10 PM) Eluate Int Warm Auto *Unknown* (06/07/14 3:10 PM) IMMUNOLOGY Most recent to 1 oldest [Reference Range]: Treponemal Scr [Non Non Reactive Reactive] *NA* (06/07/14 3:10 PM) Hep Bs Ag [Negative] Negative *NA* (06/07/14 3:10 PM) HEMATOLOGY Most recent to 1 oldest [Reference Range]: WBC [3.7-10.4 K/CMM] 11.5 K/CMM *HI* (06/07/14 3:10 PM) RBC [4.20-5.40 3.69 M/CMM M/CMM] *LOW* (06/07/14 3:10 PM) Hgb [12.0-16.0 g/dL] 11.1 g/dL *LOW* (06/07/14 3:10 PM) Hct [36.0-48.0 %] 33.0 % *LOW* (06/07/14 3:10 PM) MCV [80.0-98.0 fL] 89.4 fL (06/07/14 3:10 PM) MCH [27.0-31.0 pg] 30.2 pg (06/07/14 3:10 PM) MCHC [32.0-36.0 33.8 g/dL g/dL] (06/07/14 3:10 PM) RDW [11.5-14.5 %] 14.1 % (06/07/14 3:10 PM) Platelet [133-450 231 K/CMM K/CMM] (06/07/14 3:10 PM) MPV [7.4-10.4 fL] 10.5 fL *HI* (06/07/14 3:10 PM) Segs [45.0-75.0 %] 74.3 % (06/07/14 3:10 PM) Lymphocytes 19.3 % [20.0-40.0 %] *LOW* (06/07/14 3:10 PM) Monocytes [2.0-12.0 5.0 % %] (06/07/14 3:10 PM) Eosinophils [0.0-4.0 1.0 % %] (06/07/14 3:10 PM) Basophils [0.0-1.0 0.4 % %] (06/07/14 3:10 PM) Segs-Bands # 8.5 K/CMM [1.5-8.1 K/CMM] *HI* (06/07/14 3:10 PM) Lymphocytes # 2.2 K/CMM [1.0-5.5 K/CMM] (06/07/14 3:10 PM) Monocytes # [0.0-0.8 0.6 K/CMM K/CMM] (06/07/14 3:10 PM) Eosinophils # 0.1 K/CMM [0.0-0.5 K/CMM] (06/07/14 3:10 PM) Medications Administered During Your Visit No data available for this section Immunizations Vaccine Date Refusal Reason measles/mumps/rubella virus vaccine 06/09/14 Procedures Procedure Type Body Site Date of Procedure Related Diag nosis D&C - Dilatation and 06/13/12 12:00 AM curettage Social History Social History Type Response Alcohol Use: Past, Type: Liquor, Fr equency: 1-2 times per month, Previous treatment: None, Has alcohol use interf ered with work or home life? No, Do you ever drink more than intended? No, Has anyone been hurt or at risk by your drinking? No Smoking Status Never smoker, Exposure to T obacco Smoke None, Cigarette Smoking Last 365 Days No, Reg Smoking Cessation Counseli ng No Assessment and Plan Extracted from: Title: OB Progress Note Author: Marsha Roberts MD Date: 06/09/14 [...] in 6 wks Marsha Roberts, PGY1 Extracted from: Title: OB H&P Author: Ann Sifuentes DO Date : 06/07/14 Impression and Plan 39yo at 37w0d [...] 3hr) 6. Cephalic, EFW [id number] Ann Sifuentes, PGY1
--- OUTSIDE RECORDS SUMMARY | 2020-02-25 00:40 | XMS REPORT | Continuity of Care Document ---
Author Author [facility] Organization [facility] Address [address] [place] [address] Phone Unavailable Care Team Providers Care Union Contract Representative Name Role Phone UNKNOWN, REFFERING PCP Unavailable Joaquin Castro Attphys KEILA CASTRO Attphys Unavailable Donny Russell Attphys [phone] Ran[address] Byrd Attphys Kim Cline Attphys KEILA CASTRO Admphys Unavailable Ranulfo Byrd Admphys Problems Condition Name Condition Details Condition Category Status Onset Date Resolution Date Last Treatment Date Treating Clinician Comments Source RIGHT HAND CARPAL TUNNEL RIGH T HAND CARPAL TUNNEL Active 07/14/2016 [facility] [place] Diagnosis Active 2016-07-14 08:00:00 2017-01-24 15:40:00 [facility] VAGINAL DEL VAGI NAL DEL Active 11/29/2015 [facility] Diagnosis Active 2015-11-29 06:00:00 2015-11-29 08:05:00 [facility] PALPITATIONS PALP ITATIONS Active 11/05/2015 [facility] Diagnosis Active 2015-11-05 00:00:00 2015-11-05 07:11:00 [facility] CHILDBIRTH CHIL DBIRTH Active 04/13/2014 [facility] Diagnosis Active 2014-04-13 06:00:00 2014-05-20 17:35:00 [facility] INDUCTION DAYNE CTION Active 04/13/2014 [facility] Diagnosis Active 2014-04-13 06:00:00 2014-06-07 06:47:00 [facility] RAPID HEART RATE RAPI D HEART RATE Active 10/24/2013 [facility] Diagnosis Active 2013-10-24 00:00:00 2013-10-24 06:43:00 [facility] Overweight (finding) Over weight (finding) Active 05/04/2013 Problem 02/25/2017 Data migrated from [employer] on 12/10/14. [facility] [place] [place] [facility] [place] Problem Active 2013-05-04 00:00:00 2017-02-25 00:07:[address] [facility] Javon OTHER OTHE R Active 10/13/2012 [facility] Diagnosis Active 2012-10-13 10:00:00 2012-10-13 14:18:00 [facility] ANXIETY ANXI ETY Active 01/16/2012 [facility] Diagnosis Active 2012-01-16 03:00:00 2012-01-16 09:21:00 [facility] Panic disorder (disorder) Colby c disorder (disorder) Active 11/06/2011 Problem 02/25/2017 Data migrated from [employer] on 12/10/14. [facility] [place] [place] [facility] [place] Problem Active 2011 00:00:00 2017-02-25 00:07:51 Teodoro ritter HIGH BLOOD PRESSURE HIGH BLOOD PRESSURE Active 03/24/2011 [facility] Diagnosis Active 2011-03-24 00:00:00 2011-03-25 02:31:[address] [facility] Javon INCOMPLETE INCO MPLETE Active 10/07/2010 [facility] Diagnosis Active 2010-10-07 00:00:00 2011-03-25 02:31:[address] [facility] Javon VAGINAL BLEEDING VAGI NAL BLEEDING Active 10/06/2010 [facility] Diagnosis Active 2010-10-06 00:00:00 2011-03-25 02:31:00 [facility] MISS AB 632/CPT 38841 MISS AB 632/CPT 80696 Active 10/04/2010 [facility] Diagnosis Active 2010-10-04 00:00:00 2011-03-25 02:31: [address] [facility] Javon LESS THAN 14 WEEKS-- BRADYCARDIA LESS THAN 14 WEEKS-- BRADYCARDIA Active 09/28/2010 [facility] Active 2010-09-28 00:00:00 2011-03-25 02:31:00 [facility] VAG BLEED VAG BLEED Active 06/16/2010 [facility] Diagnosis Active 2010-06-16 00:00:00 2011-03-25 02:31:00 [facility] Allergic rhinitis (disorder) A llergic rhinitis (disorder) Active 11/30/2008 Problem 02/25/2017 Data migrated from [employer] on 12/10/14. [facility] [place] [place] [facility] [place] Problem Active 2008-11-30 00:00:00 2017-02-25 00:07:51 Ann Alejandro Gastroesophageal reflux disease (disorder) Gastroesophageal reflux disease (disorder) Active 04/30/2007 Problem 02/25/2017 Data migrated from [employer] on 12/10/14. [facility] [place] [place] [facility] [place] Problem Active 2007-04-30 00:00:00 2017-02-25 00:07:51 Teodoro Alejandro Irregular heart beat (finding) Irregular heart beat (finding) Resolved Problem 02/25/2017 [facility] [place] [place] [facility] [place] Problem Resolved 2017-02-25 00:07:[address] [facility] Javon Anxiety (finding) Anxi ety (finding) Active Problem 02/25/2017 [facility] [place] [place] [facility] [place] Problem Active 2017-02-25 00:07:51 Ted Alejandro Benign hypertension (disorder) Benign hypertension (disorder) Active Problem 02/25/2017 Data migrated from [employer] on 12/10/14. [facility] [place] [place] [facility] [place] Problem Active 2017-02-25 00:07:[address] [facility] J[facility]on Depression - motion (qualifier value) Depression - motion (qualifier value) Active Problem 02/25/2017 [facility] [place] [place] [facility] [place] Problem Active 2017-02-25 00:07:51 Teodoro Alejandro Hypertensive disorder, systemic arterial (disorder) Hypertensive disorder, systemic arterial (disorder) Active Problem 02/25/2017 [facility] [place] [place] [facility] [place] Problem Active 2017-02-25 00:07:51 Memor leda Alejandro Anxiety Anxi ety Active Problem 10/15/2012 [facility] Problem Active 2012-10-15 22:59:[address] [facility] J[facility] Depression Depr ession Active Problem 10/15/2012 [facility] Problem Active 2012-10-15 22:59:18 Il ranjith Alejandro HTN - Hypertension HTN - Hypertension Active Problem 10/15/2012 [facility] Problem Active 2012-10-15 22:59:18 [facility] PROLONGED PREG-UNSP PROL ONGED PREG-UNSP Active [facility] Diagnosis Active 2014-06-07 06:47:00 [facility] Discharge Diagnosis: Atrial fibrillation Discharge Diagnosis: Atrial fibrillation 11/05/2015 11/08/2015 [facility] Problem 2015-11-05 05:00:00 2015-11-08 00:25:09 2015-11-08 00:25:09 [facility] Discharge Diagnosis: beta charlene withdrawal/rebound; palpitations/IUP Discharge Diagnosis: beta charlene withdrawal/rebound; palpitations/IUP 10/24/2013 10/26/2013 [facility] Problem 2013-10-24 05:00:00 2013-10-26 20:24:41 2013-10-26 20:24:41 [facility] History of Past Illness Condition Name Condition Details Condition Category Status Onset Date Resolution Date Last Treatment Date Treating Clinician Comments Source Patient currently (finding) Patient currently (finding) Resolved 06/07/2014 Problem 02/25/2017 [facility] [place] [place] [facility] [place] Problem Resolved 2014-06-07 00:00:00 2017-02-25 00:07:51 2017-02-25 00:07:51 [facility] Bronchitis (disorder) Bron chitis (disorder) Resolved 12/15/2012 Problem 02/25/2017 Data migrated from [employer] on 01/28/15. [facility] [place] [place] [facility] [place] Problem Resolved 2012-12-15 00:00:00 2017-02-25 00:07:51 2017-02-25 00:07:51 [facility] Low back strain (disorder) Low back strain (disorder) Resolved 06/28/2011 Problem 02/25/2017 Data migrated from [employer] on 01/28/15. [facility] [place] [place] [facility] [place] Problem Resolved 2011-06-28 00:00:00 2017-02-25 00:07:51 2017-02-25 00:07:[facility] Acute bronchitis with bronchospasm (disorder) Acute bronchitis with bronchospasm (disorder) Resolved 03/22/2011 Problem 02/25/2017 Data migrated from [employer] on 01/28/15. [facility] [place] [place] [facility] [place] Problem Resolved 2011-03-22 00:00:00 2017-02-25 00:07:51 2 00:07:51 [facility] Acute maxillary sinusitis (disorder) Acute maxillary sinusitis (disorder) Resolved 02/27/2009 Problem 02/25/2017 Data migrated from [employer] on 01/28/15.Data migrated from [employer] on 01/28/15. [facility] [place] [place] [facility] [place] Problem Resolved 2009-02-27 00: 00:00 2017-02-25 00:07:51 2017-02-25 00:07:51 [facility] Fever (finding) Feve r (finding) Resolved 11/30/2008 Problem 02/25/2017 Data migrated from [employer] on 01/27/15. [facility] [place] [place] [facility] [place] Problem Resolved 2008-11-30 00: 00:00 2017-02-25 00:07:51 2017-02-25 00:07:51 [facility] Pharyngitis (disorder) Phar yngitis (disorder) Resolved 11/30/2008 Problem 02/25/2017 Data migrated from [employer] on 01/28/15. [facility] [place] [place] [facility] [place] Problem Resolved 2008-11-30 00:00:00 2017-02-25 00:07:51 2017-02-25 00:07:51 [facility] Upper respiratory infection (disorder) Upper respiratory infection (disorder) Resolved 11/30/2008 Problem 02/25/2017 Data migrated from [employer] on 01/28/15.Data migrated from [employer] on 01/28/15.Data migrated from [employer] on 01/28/15. [facility] [place] [place] [facility] [place] Problem Resolved 2008-11-30 00:00:00 2017-02-25 00:07:51 2017-02-25 00:07:5 1 [facility] Acute bronchitis (disorder) Ac gretchen bronchitis (disorder) Resolved 07/23/2007 Problem 02/25/2017 Data migrated from [employer] on 01/28/15. [facility] [place] [facility] [place] Problem Resolved 2007-07-23 00:00:00 2017-02-25 00:07:51 2017-02-25 00:07:51 M emorijessa Ponder Allergies, Adverse Reactions, Alerts Allergy Name Allergy Type Status Severity Reaction(s) Onset Date Inacti ve Date Treating Clinician Comments Source minocycline minocycline Active [facility] Social History Social Habit Start Date Stop Date Quantity Comments Source Social History 2014-06-07 20:10:43 2014-06-07 20:10:[address] [facility] Javon Medications Ordered Medication Name Filled Medication Name Start Date Stop Da te Current Medication? Ordering Clinician Indication Dosage Frequency Signature (SIG) Comments Components Source Labetalol 2015-11-05 11:39:00 No Notes: (Same as: Normodyne, Trandate) Push over 2 minutes Give bolus over 2-3 minutes. Teodoro Alejandro Saline Flush 0.9% 2015-11-05 11:28:00 No Notes: (Same as: BD Posiflush) [facility] J[facility]on Sodium Chloride 0.154 MEQ/ML Injectable Solution 2015-11-05 11:2 8:00 No 1,000 mL, 1000 ml/hr, Infuse Over: 1 hr, Route: IV, 1,000, Drug form: INJ, ONCE, Priority: STAT, Dosing Weight 130 kg, Start date: 11/05/15 6:28:00 CDT, Duration: 1 doses or times, Stop date: 11/05/15 6:28:[address] [facility] Javon Methyldopa 500 MG Oral Tablet 2014-06-09 15:00:00 No Notes: May interfere w/enteral feedings. (Same as:Aldomet) [facility] Javon ferrous sulfate 325 MG Oral Tablet 2014-06-09 13:42:00 Yes 325 mg = 1 tab, PO, TID, # 90 tab, 0 Refill(s) [facility] Javon Docusate Sodium 100 MG Oral Capsule [Colace] 2014-06-09 13:42:00 Yes 100 mg = 1 cap, PO, BID, # 60 cap, 0 Refill(s) [facility] Javon ibuprofen 800 mg oral tablet 2014-06-09 13:42:00 Yes 800 mg = 1 tab, PO, Q8H, Pain Score 6-10, # 30 tab, 0 Refill(s) [facility] Javon Methyldopa 500 MG Oral Tablet 2014-06-09 13:42:00 Yes 500 mg = 1 tab, PO, BID, # 60 tab, 0 Refill(s) Luis chatterjeeayden Alejandro Docusate Sodium 100 MG Oral Capsule [Colace] 2014-06-08 15:00:00 No Notes: (Same as: Colace) (Do Not Crush) Teodoro Alejandro Multivitamins oral tablet 2014-06-08 15:00:00 No 1 tab, Route: PO, Drug Form: TAB, Dosing Weight 122.727, kg, Daily, Start date: 06/08/14 9:00:00, Duration: 30 day, Stop date: 07/07/14 9:00:00 Teodoro Alejandro Penicillin G 2014-06-08 04:00:00 No 2,500,000 unit, 50 mL, Route: IVPB, Drug form: INJ, ABXQ4H, Dosing Weight 122.727, kg, Start date: 06/07/14 22:00:00 Teodoro Alejandro M-M-R II 2014-06-08 02:00:00 No Notes: (Same as: M-M-R II) (eriizsg-kiwry-ksscwmr virus vaccine 0.5 ml INJ VL) GIVE PRIOR TO DISCHARGE Teodoro Alejandro Ibuprofen 2014-06-08 01:51:00 No Notes: (Same as: Motrin) "Do Not Crush" Take with food. [facility] Javon Acetaminophen 325 MG / Hydrocodone Bitartrate 5 MG Oral Tabl et 2014-06-08 01:51:00 No Notes: (Sa me as: Newton 325/5) Do not exceed 4gm/day of acetaminophen. [facility] Javon Acetaminophen 325 MG / Hydrocodone Bitartrate 10 MG Oral Tab let 2014-06-08 01:51:00 No Notes: Do not exceed 4gm/day of acetaminophen. (Same as: Newton 325/10) [facility] Acetaminophen 2014-06-08 01:51:00 No Notes: Do not exceed 4 gm/day. (Same as: Tylenol) [facility] Javon zolpidem 2014-06-08 01:51:00 No Notes: (Otf e As: Ambien) [facility] Javon Methylergonovine 2014-06-08 01:51:00 No Notes: (Same as:Methergine) Teodoro Alejandro lanolin topical 2014-06-08 01:51:00 No 1 appl, Route: TOP, PRN, Drug form: OINT, PRN Other -See Comment, Start date: 06/07/14 19:51:00, Duration: 30 day, Stop date: 07/07/14 19:50:00 Ted tompkins Javon Benzocaine 200 MG/ML Topical Continental [Dermoplast] 2014-06-08 01:51 :00 No Notes: (Same As: Dermoplast) FOR EXTERNAL USE ONLY Teodoro Alejandro Promethazine 2014-06-08 01:51:00 No Notes: Do not give IV push. (Same as: Phenergan) Teodoro Alejandro Ondansetron 2014-06-08 01:51:00 No Notes: ( Same as: Zofran) Teodoro Alejandro Bisacodyl 2014-06-08 01:51:00 No Notes: (Same As: Dulcolax, Correctol) (Do Not Crush) "Do Not Crush" Teodoro Alejandro Oxytocin 0.03 UNT/ML Injectable Solution 2014-06-08 01:51:00 No Notes: (Same as: OXYTOCIN-D5LR) Teodoro Alejandro Lactated Ringers IV 1,000 mL 2014-06-08 01:51:00 No 1,000 mL, Rate: 100 ml/hr, Infuse over: 10 hr, Route: IV, Dosing Weight 122.727 kg, Total Volume: 1,000, Start date: 06/07/14 19:51:00, Duration: 30 day, Stop date: 07/07/14 19:50:00 Teodoro Ponder Penicillin G Potassium 2159456 UNT/ML Injectable Solution 2014-06-08 00:00:00 No Notes: (Same as: Pfizerpen) Teodoro Ponder Oxytocin 0.03 UNT/ML Injectable Solution 2014-06-07 21:03:00 No Notes: (Same as: OXYTOCIN-D5LR) [facility] Carboprost 2014-06-07 21:00:00 No Notes: (S isa As: Hemabate) [facility] Famotidine 2014-06-07 21:00:00 No Notes: (Same as: Pepcid) Can be dilute in 5-10cc NS IVP: Slow IV push over at least 2 minutes. [facility] Misoprostol 2014-06-07 21:00:00 No Notes: (Same as:Cytotec) Take with food [facility] Methylergonovine 2014-06-07 21:00:00 No Notes: (Same as:Methergine) [facility] Citric Acid / sodium citrate 2014-06-07 21:00:00 No Notes: (Same As: Bicitra, Cytra-2) Sodium citrate-citric acid (500-334 mg/5 mL): 1 mL contains sodium 1 mEq/mL and bicarbonate 1 mEq/mL Teodoro Alejandro Lidocaine Hydrochloride 10 MG/ML Injectable Solution 06-07 20:33:00 No Notes: (Same as: Xylocaine) Teodoro Alejandro Terbutaline 2014-06-07 20:33:00 No Notes: DO NOT USE IN L[employer] ARE[employer] (Same As: Brethine) Teodoro ritter Ondansetron 2014-06-07 20:33:00 No Notes: ( Same as: Zofran) Teodoro Alejandro Butorphanol 2014-06-07 20:33:00 No Notes: ( Same As: Stadol) Teodoro Alejandro Oxytocin 0.03 UNT/ML Injectable Solution 2014-06-07 20:33:00 No Notes: (Same as: OXYTOCIN-D5LR) Teodoro Alejandro Calcium Chloride 0.0014 MEQ/ML / Potassi um Chloride 0.004 MEQ/ML / Sodium Chloride 0.103 MEQ/ML / Sodium Lactate 0.028 MEQ/ML Injectable Solution 2014-06-07 20:33:00 No 1,000 mL, 1,000 ml/hr, Infuse Over: 1 hr, Route: IV, 1,000, Drug form: INJ, ONCE, Dosing Weight 122.727 kg, Start date: 06/07/14 14:33:00, Stop date: 06/07/14 14:33:00, Bolus for regional anesthesia per unit protocol Teodoro Alejandro Lactated Ringers IV 1,000 mL 2014-06-07 20:33:00 No 1,000 mL, Rate: 125 ml/hr, Infuse over: 8 hr, Route: IV, Dosing Weight 122.727 kg, Total Volume: 1,000, Start date: 06/07/14 14:33:00, Duration: 30 day, Stop date: 07/07/14 14:32:00 Teodoro Alejandro Magnesium Sulfate 2013-10-24 19:19:00 No 1 gm, 50 mL, Route: IVPB, Drug form: INJ, ONCE, Dosing Weight 122.727, kg, Start date: 10/24/13 14:19:00, Stop date: 10/24/13 14:19:00 Teodoro noyola Labetalol 2013-10-24 18:03:00 No Notes: (Same as: Normodyne, Trandate) Push over 2 minutes Give bolus over 2-[address] [facility] Javon Sodium Chloride 0.154 MEQ/ML Injectable Solution 2013-10-24 17:2 6:00 No 1,000 mL, 1,000 ml/hr, Infus e Over: 1 hr, Route: IV, 1,000, Drug form: INJ, ONCE, Priority: STAT, Dosing Weight 122.727 kg, Start date: 10/24/13 12:26:00, Duration: 1 doses or times, Stop date: 10/24/13 12:26:[address] [facility] Ponder Sodium Chloride 0.154 MEQ/ML Injectable Solution 2013-10-24 15:4 9:00 No 500 mL, 1000 ml/hr, Infuse O naveed: 0.5 hr, Route: IV, 500, Drug form: INJ, ONCE, Priority: STAT, Dosing Weight 122.727 kg, Start date: 10/24/13 10:49:00, Duration: 1 doses or times, Stop date: 10/24/13 10:49:[address] [facility] Javon Rubinignacio 2013-10-24 10:52:00 No 4 mg, Route: IVP, Drug form: INJ, ONCE, Dosing Weight 122.727, kg, Priority: STAT, Start date: 10/24/13 5:52:00, Stop date: 10/24/13 5:52:00 [facility] ritter Sodium Chloride 0.154 MEQ/ML Injectable Solution 2013-10-24 10:5 2:00 No 1,000 mL, 1,000 ml/hr, Infus e Over: 1 hr, Route: IV, ONCE, Priority: STAT, Dosing Weight 122.727 kg, Start date: 10/24/13 5:52:00, Duration: 1 doses or times, Stop date: 10/24/13 5:52:00 Ted Alejandro Sodium Chloride 0.9% (Bolus) IV 1000 mL 2012-01-16 14:11:0 0 No Erik Russlel 1,000 mL, Rate: 1,000 ml/hr, Infuse over: 1 hr, Route: IV, kg, Total Volume: 1,000, Bolus Dose, Priority: STAT, Start date: 01/16/12 9:11:00, Duration: 1 doses or times, Stop date: 01/16/12 10:10:00 [facility] Vital Signs Vital Name Observation Time Observation Value Comments Source Respitory Rate 2015-11-05 15:34:00 Memori al J[facility]on Systolic (mm Hg) 2015-11-05 15:34:00 Luis rial Ponder Diastolic (mm Hg) 2015-11-05 15:34:00 [facility] Temperature Oral (F) 2015-11-05 15:34:00 98.2 F [facility] Respitory Rate 2015-11-05 14:00:00 [facility] J[facility]on Systolic (mm Hg) 2015-11-05 14:00:00 Luis rial Javon Diastolic (mm Hg) 2015-11-05 14:00:00 Mem [facility]onder Temperature Oral (F) 2015-11-05 12:15:00 98.2 F [facility] Systolic (mm Hg) 2015-11-05 12:15:00 Luis rial Ponder Diastolic (mm Hg) 2015-11-05 12:15:00 Mem [facility] J[facility]on Respitory Rate 2015-11-05 12:15:00 Memori al J[facility]on Heart Rate 2015-11-05 12:15:00 [facility] Heart Rate 2015-11-05 11:38:00 [facility] BMI Calculated 2015-11-05 11:38:00 [facility] Weight 2015-11-05 11:38:00 [facility] Temperature Oral (F) 2015-11-05 11:38:00 98.2 F [facility] Height 2015-11-05 11:38:00 165.1 cm [facility] Heart Rate 2014-06-09 23:00:00 [facility] Diastolic (mm Hg) 2014-06-09 22:21:00 Mem orial Ponder Heart Rate 2014-06-09 22:21:00 [facility] Temperature Oral (F) 2014-06-09 22:21:00 97.6 F [facility] Respitory Rate 2014-06-09 22:21:00 Memori al Javon Systolic (mm Hg) 2014-06-09 22:21:00 Luis rial Ponder Heart Rate 2014-06-09 15:24:00 [facility] Systolic (mm Hg) 2014-06-09 15:24:00 Luis rial Javon Diastolic (mm Hg) 2014-06-09 15:24:00 Mem orial Ponder Temperature Oral (F) 2014-06-09 15:24:00 98.2 F [facility] Respitory Rate 2014-06-09 15:24:00 Memori al Ponder Respitory Rate 2014-06-09 06:25:00 Memori al Ponder Systolic (mm Hg) 2014-06-09 06:25:00 Luis rial Ponder Diastolic (mm Hg) 2014-06-09 06:25:00 [facility] J[facility]on Temperature Oral (F) 2014-06-09 06:25:00 97.9 F [facility] BMI Calculated 2014-06-08 08:54:00 [facility] Weight 2014-06-08 08:54:00 [facility] Height 2014-06-08 08:54:00 167.64 cm [facility] Diastolic (mm Hg) 2013-10-24 21:01:00 Mem orial Ponder Systolic (mm Hg) 2013-10-24 21:01:00 Luis rial Javon Respitory Rate 2013-10-24 21:01:00 Memori al Javon Heart Rate 2013-10-24 21:01:00 [facility] Diastolic (mm Hg) 2013-10-24 20:00:00 Mem o[facility] Ponder Systolic (mm Hg) 2013-10-24 20:00:00 Luis rial Ponder Respitory Rate 2013-10-24 20:00:00 Memori al Ponder Heart Rate 2013-10-24 20:00:00 [facility] Diastolic (mm Hg) 2013-10-24 19:00:00 Mem o[facility] Javon Systolic (mm Hg) 2013-10-24 19:00:00 Luis rial Javon Respitory Rate 2013-10-24 19:00:00 [facility] al J[facility]on Heart Rate 2013-10-24 19:00:00 [facility] Temperature Oral (F) 2013-10-24 10:30:00 98.0 F [facility] Temperature Oral (F) 2013-10-24 07:15:00 98.4 F [facility] Weight 2012-10-13 17:36:00 [facility] Height 2012-10-13 17:36:00 165.1 cm [facility] Weight 2012-01-16 12:22:00 [facility] Height 2012-01-16 12:22:00 165.10 cm [facility] Procedures Procedure Date / Time Performed Performing Clinician [facility] e D&C - Dilatation and curettage 2012-06-13 06:00:00 [facility] Encounters Start Date/Time End Date/Time [facility] Source 2017-01-24 15:30:00 2017-02-22 23:59:00 Outpatient Keila Castro [id number] 2015-11-05 06:22:00 2015-11-05 10:39:00 Outpatient Norm Moralez [place] [id number] 2014-06-07 06:45:00 2014-06-09 22:00:00 Outpatient Prater ZENAIDA IE [id number] 2013-10-24 02:13:00 2013-10-24 16:07:00 Outpatient Berlin Cline ZENAIDA IE [id number] 1998-02-05 00:00:00 1998-02-05 00:00:00 Emergency [facility] [id number] [facility] Results Test Description Test Time Test Comments Results Result Comments Source [facility], Qualitative 2017-01-17 15:21:00 Test Item Preg Qual [Ur] (test code = HUHCG) Negative Negative N URINE AND [id number] 11:55:[facility] [id number] 11:55:001.001[facility] [id number] 11:55:00Clear (11/05/15 6:55 AM)[facility] [id number] 11:55:00Small *ABN*(11/05/15 6:55 AM)[facility] [id number] 11:55:00Negative *NA*(11/05/15 6:55 AM)[facility] [id number] 11:55:00Negative (11/05/15 6:55 AM)[facility] [id number] 11:55:00Negative (11/05/15 6:55 AM) [facility] [id number] 11:55:00<1[facility] [id number] 11:55:00<1[facility] [id number] 11:55:001 [facility]ARD[facility] [id number] 11:42:000.5[facility] [id number] 11:42:000.03[facility] [id number] 11:42:00 215[facility]ann[facility]ARD[facility]AC [id number] 11:42:001.0[facility]annCHEM [id number] 11:42:001.9[facility]annCHEM [id number] 11:42:002.0 [facility] [id number] 11:42:05510Fhcrzaai HermannCHEM PANEL 2015-11-05 11:42:0024[facility] HermannCHEM [id number] 11:42:0013.2[facility]annCHE[facility] [id number] 11:42:0040[facility]annCHE[facility] [id number] 11:42:000.1[facility]annCHE[facility] [id number] 11:42:0085[facility]annCHE[facility] [id number] 11:42:004.2[facility]annCHEM FQEKM5152-19-33 11:42:0012 [facility] IKUGQ2201-22-05 11:42:000.8[facility]ann[facility] PANEL 2015-11-05 11:42:007[facility] WDGZD0707-49-08 11:42:003.2[facility] LQYVH6378-29-95 11:42:60245Juxziebd HermannCHEM HJUFR1763-66-18 11:42:71764Oajeamgu HermannCHEM TGKJH0456-70-03 11:42:000.60[facility] ADVUK4691-85-70 11:42:75099Vnucdfmk HermannCHEM TRRCJ6935-76-25 11:42:008.3 [facility] FKRGP4719-14-05 11:42:0023[facility]annCHE[facility] PANEL 2015-11-05 11:42:003.5[facility]CHE[facility] FHMBD0368-51-71 11:42:007.7[facility] XzllmvtPLWGJANEYADKN7809-77-88 11:42:00Positive *NA*(11/05/15 6:42 AM)[facility] SafqpmjQZLWBNHAHH0491-53-49 11:42:000.1[facility] CjjjpuzJQCVPILCYN4410-92-66 11:42:000.6[facility] KzmvrvyQMQLUKXNER2192-37-75 11:42:000.2[facility] HXKKZTTKQF1767-84-94 11:42:006.5[facility] OplokoxTSUJXJVGQO4293-74-84 11:42:00 25.9[facility] QedwqoiJYBSEIQILN5561-60-01 11:42:0064.8[facility]annHEMATOLOGY 2015-11-05 11:42:002.1[facility] TxzqsmqIBFDUPRKGD4746-06-15 11:42:002.3[facility] XlrbmnlSRSMOXHMSM4904-10-59 11:42:005.8[facility] ScdkbmoPRZWKGOBNA6710-43-62 11:42:000.7[facility] JrumzfmQDNNNFNBDH2170-13-50 11:42:008.5[facility] QOJVAMQVUZ4427-53-63 11:42:0039.7[facility] TpprikgYESTKFZFDU9992-68-45 11:42:00 12.6[facility] TwzqcleAEYLIWFWDK5571-59-16 11:42:004.55[facility]annHEMATOLOGY 2015-11-05 11:42:009.0[facility] OdasiarMXODZYRYQQ3702-60-79 11:42:01892Anzzbjqu LfhmsgpXQVLLRMIEW6321-79-51 11:42:0014.4[facility] HtzfopfCCWGRMESCA1962-40-15 11:42:0031.8[facility] UmpsblkYBCFXDDVIT4408-83-52 11:42:00* Test Item Value Reference Range Interpretation Comments MCH (test code = MCH) 27.7 pg 27.0-31.0 [facility] IrsmzluWUAAQPLADP7460-98-51 11:42:0087.1[facility]annBL[facility]OD BANK BSHNCGE7746-12-62 21:10:00Positive (06/07/14 3:10 PM)[facility] UUJFNOC4593-84-43 21:10:00Negative (06/07/14 3:10 PM)[facility] WKPXSVV2604-39-96 21:10:00Positive (06/07/14 3:10 PM)[facility]annHEMATOLOGY 2014-06-07 21:10:000.1[facility] AjqooqvLRGJIKNRKL2925-28-98 21:10:008.5[facility] BpjvjeeKBHDSEPMJY2102-50-90 21:10:002.2[facility] CpigbqcGJGTUEEQCS6231-21-52 21:10:000.6[facility] OckbtjkXCYYLVPISD6733-08-51 21:10:005.0[facility] QSIDSJHELM7249-45-19 21:10:000.4[facility] EnoecoqPKBBNJUTWK3523-29-28 21:10:001.0 [facility] LxxhedrOTGQGSYZEP3278-89-48 21:10:0074.3[facility]annHEMATOLOGY 2014-06-07 21:10:0019.3[facility] RhoodktJQXXLWCIDW5459-08-87 21:10:0014.1[facility] KfzrmxoSOIXXONGBP0700-08-28 21:10:0033.8[facility] XydtnuwGHMJJDTJBA2765-98-62 21:10:0010.5[facility] NqsrzugRTCWVKEHVE6524-85-41 21:10:22678Ykifffen Javon ZREMRHDCLO1659-09-80 21:10:00* Test Item Value Reference Range Interpretation Comments MCH (test code = MCH) 30.2 pg 27.0-31.0 [facility] HkwwapqUZFLCXVVAG8915-97-05 21:10:0089.4[facility]annHEMATOLOGY 2014-06-07 21:10:003.69[facility] QvfcropDNZLEMMHZX5426-06-95 21:10:0033.0[facility] QbubamhOQFOBERGJO0302-85-92 21:10:0011.1[facility] LzgsslkHHOEOQNNXG0553-24-49 21:10:0011.5[facility] AcerjdwSHVMMIVVUM7419-99-97 21:10:00Negative *NA*(06/07/14 3:10 PM)[facility] SxhvjxoHULVSOQNXF1490-16-73 21:10:00Non Reactive *NA*(06/07/14 3:10 PM)[facility] CoacgzcVUFJFDCTUE4809-34-04 10:51:000.65[facility]annCHEM YDPVL6437-92-63 09:00:001.5[facility]annCHE[facility] BYSHH7453-14-05 09:00:90425 [facility] PKHVI1681-70-17 09:00:0011[facility]annCHEM PANEL 2013-10-24 09:00:000.7[facility]annCHEM AEFKI8224-38-92 09:00:19469Vkntnlmf HermannCHEM IPCNH3078-33-43 09:00:96793Rcgxjixl HermannCHEM IQSNT0377-48-10 09:00:003.6[facility]CHE[facility] PWVKB0151-30-23 09:00:86286Nmygbeme HermannCHEM FLYPS4289-34-13 09:00:0026[facility]CHE[facility] IAZHT3987-94-53 09:00:009.1 [facility] COYIS2623-97-59 09:00:009.6[facility]annHEMATOLOGY 2013-10-24 09:00:0090.1[facility] VyjelegQMTEUNIVUU2981-40-90 09:00:0040.2[facility] DcxuzheSADCIMXBHM8206-78-47 09:00:0013.7[facility] OuebmmkDETFTCCYLC3938-19-63 09:00:004.46[facility] OvguznmAQPEREEQCG5290-27-69 09:00:0012.1[facility] OWYCGMMXXY6892-23-97 09:00:009.0[facility] JrfqomoCMTIKFRIYM8417-51-90 09:00:03198 [facility] BbtiguxCTAFYRPCHH2609-99-46 09:00:0013.8[facility]annHEMATOLOGY 2013-10-24 09:00:0034.1[facility] LyjhqxiFLAHOJZRTU2626-67-26 09:00:00* Test Item Value Reference Range Interpretation Comments MCH (test code = MCH) 30.8 pg 27.0-31.0 [facility] LsbasofJZLJLTSZWH9022-13-18 09:00:000.1[facility]annHEMATOLOGY 2013-10-24 09:00:000.2[facility] NkfwykaOKIPYYRGGK5638-43-48 09:00:000.7[facility] YxqlqgpLOIJEWWDFP3249-84-81 09:00:002.5[facility] HzcpwxdANGGVEFCXO6700-00-99 09:00:008.6[facility] OpskjxtZZODGGQKJG7465-23-06 09:00:0020.8[facility] ZSJUXQZYIX4605-53-33 09:00:0071.1[facility] NmvehbmOCXULMMKQH5993-10-51 09:00:00 0.4[facility] OthbarlLAISOJAGKK0491-98-35 09:00:002.1[facility]annHEMATOLOGY 2013-10-24 09:00:005.6[facility] HermannTHYROID UEQXR1168-96-94 09:00:001.670 [facility] EOLUF6261-40-89 09:00:00Clear (10/24/13 4:00 AM) [facility] LLIDZ5998-77-41 09:00:001.006[facility] UKVSY6016-80-67 09:00:006.0[facility] SFUST0182-29-22 09:00:00 Moderate *ABN*(10/24/13 4:00 AM)[facility] JGUCU7045-01-45 09:00:00Negative *NA*(10/24/13 4:00 AM)[facility] DJKRC7314-53-82 09:00:00Negative (10/24/13 4:00 AM)[facility] BGIMH2635-24-87 09:00:001[facility] LLMCP3707-37-97 09:00:007[facility] URINE AND PSAZC1088-94-95 09:00:00Negative (10/24/13 4:00 AM)[facility] Javon [facility] EZHF5890-26-39 09:00:00Positive *ABN*(10/24/13 4:00 AM)[facility] HQNPDEMVL0074-57-42 12:30:004.6[facility] SagfocyROHHPWBZM4295-95-85 12:30:000.8 [facility] UcoiegnGVXPKGJSI2442-56-03 12:30:0014[facility] HermannCHEMISTRY 2012-01-16 12:30:0011.1[facility] TydeimkKTRSMGMWS1039-24-04 12:30:008.5[facility] LzjqeaxADGCOLZDZ9441-15-86 12:30:009.0[facility] BmkuuktRYPBYLTMT7746-59-62 12:30:0060[facility] EyvwhlqSKMVHYTIV1898-74-22 12:30:003.9[facility] JMJMFJPGB4952-40-65 12:30:000.3[facility] AdzpyteLMNMMBNSI0500-37-53 12:30:0072 [facility] JtxtuduNMRNCBVGY9608-50-12 12:30:0026[facility] HermannCHEMISTRY 2012-01-16 12:30:0011[facility] HcnzrsbUDMWOIOZP3985-33-40 12:30:51050Chcupaji MsrmdwlXEEBTVHZL4874-28-69 12:30:75755Xneknafu RbsasmsOESWHMYUU8697-22-60 12:30:000.8[facility] ZgovbgsPVPAFUQKN1184-63-50 12:30:004.1[facility] FYDTNSZVZ0999-45-43 12:30:0026[facility] IpoqpxtEEERBTSLR9334-61-06 12:30:61244 [facility] LvamyrlNUTSPCGMND6148-50-61 12:30:0069.7[facility] HermannHEMATOLOGY 2012-01-16 12:30:0023.8[facility] HcasuyuLAPPPKARSO1959-17-07 12:30:004.0[facility] UidrdhtNYXKRUGHOZ4144-83-12 12:30:002.0[facility] GfuggdnHKWITPSPJH9305-39-92 12:30:000.5[facility] CodshhrLJDMRRQQPS7554-48-78 12:30:006.7[facility] GPJKNOAKXJ3049-95-48 12:30:000.4[facility] SrcofizYZASXCNJSU7813-41-23 12:30:002.3 [facility] KbovjfqXEOQHAMZLC3881-72-86 12:30:000.1[facility] HermannHEMATOLOGY 2012-01-16 12:30:000.2[facility] XsbzprhFSNYMJRTTH7821-10-46 12:30:004.53[facility] OagbnhzIYHVOSVTEA7228-29-15 12:30:009.6[facility] MyzokciDRZAOGCYDJ9617-01-17 12:30:008.5[facility] QruphynOYVFQTTEWQ1464-24-34 12:30:0041.2[facility] LMJRWVTWGI0442-17-95 12:30:0014.0[facility] CnijxgzHFLJVXWYII6278-05-45 12:30:00 91.1[facility] LhglxvbXPBIZADVIZ1651-74-40 12:30:0033.9[facility]annHEMATOLOGY 2012-01-16 12:30:84118Mcfeljmq SzzjdufQDUCYDQEWW4245-56-53 12:30:0013.6[facility] PfvzfpzEHEGTOKXWH1397-51-84 12:30:00* Test Item Value Reference Range Interpretation Comments MCH (test code = MCH) 30.9 pg 27.0-31.0 N [facility] CzzsibwADDFNCRLGH2275-88-65 12:30:00Negative *NA*(01/16/2012 07:30:00) [facility] RrwqgpqCXRCIHUUA9773-29-87 12:25:00Negative (01/16/2012 07:25:00) [facility] MoyxwpoJAZKDAZGWS0189-98-33 12:25:0030 mg/dL *ABN*(01/16/2012 07:25:00) [facility] BsdgxiaHNFYDGSZUV1084-88-23 12:25:00Negative *NA*(01/16/2012 07:25:00) [facility] JrzvnaiYDZJWMYLWN3130-80-75 12:25:00Negative (01/16/2012 07:25:00) [facility] SdhwvlrIRYAUDLFHY5341-40-59 12:25:00Large *ABN*(01/16/2012 07:25:00) [facility] EcytvyqMZKTXVAIWW9051-97-50 12:25:00Negative *NA*(01/16/2012 07:25:00) [facility] UltfoqzFKTTLJCPOI0618-30-89 12:25:00Negative (01/16/2012 07:25:00) [facility] LkdvhmxTVGGYBABOR8696-61-93 12:25:00Negative (01/16/2012 07:25:00) [facility] ZcodlpcQNCMICMMQV6381-53-91 12:25:000.2[facility] FQIGLGMOOB0784-93-61 12:25:00* Test Item Value Reference Range Interpretation Comments UA pH (test code = UA pH) 6.0 1 5.0-8.[address] [facility] OraxiusCYWHLQETSD4874-48-76 12:25:00* Test Item Value Reference Range Interpretation Comments UA Spec Grav (test code = UA Spec Grav) 1.[address] [facility] DutoqdtFDRNZIFEBO7967-56-73 12:25:00Clear (01/16/2012 07:25:00) [facility] LlrwibqTHVGGWFAEB9389-34-53 12:25:00Yellow *NA*(01/16/2012 07:25:00) [facility] HybcedmYBCNLDJHJM0404-67-74 12:25:00Few /HPF (01/16/2012 07:25:00) [facility] ThooldlHCWQDRCVLA0620-72-44 12:25:000[facility] 2012-01-16 12:25:00Few /LPF (01/16/2012 07:25:00) [facility]
--- OUTSIDE RECORDS SUMMARY | 2020-02-25 00:40 | XMS REPORT | Summary of Care ---
Author Author [facility] Organization [facility] Address Unknown Phone Unavailable Encounter LEEROY Foote(DAYSI) [id number] Date(s): 11/05/15 - 11/05/15 [facility] [address] [place] [address]- [phone] Discharge Diagnosis: Atrial fibrillation Discharge Disposition: Home Attending Physician: Norm Russell MD Vital Signs 1 2 3 Most recent to oldest [Reference Range]: 165.1 cm (11/05/15 6:38 AM) Height 98.2 DegF (11/05/15 10:34 AM) 98.2 DegF (11/05/15 7:15 AM) 98.2 DegF (11/05/15 6:38 AM) Temperature Oral [96.4-99.1 DegF] 119/79 mmHg (11/05/15 10:34 AM) 128/83 mmHg (11/05/15 9:00 AM) 123/79 mmHg (11/05/15 7:15 AM) Blood Pressure [90-140/60-90 mmHg] 12 BRMIN *LOW* (11/05/15 10:34 AM) 16 BRMIN (11/05/15 9:00 AM) 18 BRMIN (11/05/15 7:15 AM) Respiratory Rate [14-20 BRMIN] 102 bpm *HI* (11/05/15 7:15 AM) 133 bpm *HI* (11/05/15 6:38 AM) Peripheral Pulse Rate [60-100 bpm] 134.091 kg (11/05/15 6:38 AM) Weight 49.19 m2 (11/05/15 6:38 AM) Body Mass Index Problem List Condition [...] ed) Irregular heart Resolved beat(Confirmed) Low back nzicfe59 06/28/11 Resolved Yzhfnlxggv72 05/04/13 Active Panic cqvohngf77 11/06/11 Active Kydoogixnrb94 11/30/08 Resolved (Confirmed) 06/07/14 - 06/07/14 Resolved (Confirmed) < 06/13/11 Resolved (Confirmed) < 09/12/11 Resolved Upper respiratory 11/30/08 Resolved cejhxtbkp28, 15, 16 1Data migrated from [employer] [...] 11/10/14. Originally documented as MINOCYCLINE. HIVES Medications labetalol 20 mg, 4 mL, Route: IVP, Drug form: INJ, ONCE, Dosing Weight 130, kg, Priority: STAT, Start date: 11/05/15 6:39:00 CDT, Stop date: 11/05/15 6:39:00 CDT Notes: (Same as: Normodyne, Trandate)Push over 2 minutes Give bolus over 2-3 mi nutes. Start Date: 11/05/15 Stop Date: 11/05/15 Status: Completed Saline Flush 0.9% 10 mL, Route: IVP, Drug Form: INJ, Dosing Weight 130, kg, PRN, PRN Line Flush, S tart date: 11/05/15 6:28:00 CDT, Duration: 30 day, Stop date: 12/05/15 6:27:00 C DT Notes: (Same as: BD Posiflush) Start Date: 11/05/15 Stop Date: 11/05/15 Status: Discontinued Sodium Chloride 0.9% (Bolus) IV 1,000 mL, 1000 ml/hr, Infuse Over: 1 hr, Route: IV, 1,000, Drug form: INJ, ONCE, Priority: STAT, Dosing Weight 130 kg, Start date: 11/05/15 6:28:00 CDT, Suzanne n: 1 doses or times, Stop date: 11/05/15 6:28:00 CDT Start Date: 11/05/15 Stop Date: 11/05/15 Status: Completed Results ELECTROLYTES Most recent to 1 oldest [Reference Range]: Sodium Lvl [135-145 140 mEq/L mEq/L] (11/05/15 6:42 AM) Potassium Lvl 3.2 mEq/L [3.5-5.1 mEq/L] *LOW* (11/05/15 6:42 AM) Chloride Lvl [95-109 107 mEq/L mEq/L] (11/05/15 6:42 AM) CO2 [24-32 mEq/L] 23 mEq/L *LOW* (11/05/15 6:42 AM) AGAP [10.0-20.0 13.2 mEq/L mEq/L] (11/05/15 6:42 AM) CHEM PANEL Most recent to 1 oldest [Reference Range]: Creatinine Lvl 0.60 mg/dL [0.50-1.40 mg/dL] (11/05/15 6:42 AM) eGFR 116 mL/min/1.73m2 1 *NA* (11/05/15 6:42 AM) BUN [7-22 mg/dL] 7 mg/dL (11/05/15 6:42 AM) B/C Ratio [6-25] 12 (11/05/15 6:42 AM) Glucose Lvl [70-99 138 mg/dL mg/dL] *HI* (11/05/15 6:42 AM) Total Protein 7.7 g/dL [6.4-8.4 g/dL] (11/05/15 6:42 AM) Albumin Lvl [3.5-5.0 3.5 g/dL g/dL] (11/05/15 6:42 AM) Globulin [2.0-4.0 4.2 g/dL g/dL] *HI* (11/05/15 6:42 AM) A/G Ratio [0.7-1.6] 0.8 (11/05/15 6:42 AM) Calcium Lvl 8.3 mg/dL [8.5-10.5 mg/dL] *LOW* (11/05/15 6:42 AM) Phosphorus [2.5-4.5 2.0 mg/dL mg/dL] *LOW* (11/05/15 6:42 AM) Magnesium Lvl 1.9 mg/dL [1.8-2.4 mg/dL] (11/05/15 6:42 AM) ALT [0-65 unit/L] 40 unit/L (11/05/15 6:42 AM) AST [0-37 unit/L] 24 unit/L (11/05/15 6:42 AM) Alk Phos [39-136 85 unit/L unit/L] (11/05/15 6:42 AM) Bili Total [0.2-1.3 0.1 mg/dL mg/dL] *LOW* (11/05/15 6:42 AM) 1Result Comment: The eGFR is calculated [...] be mul tiplied by the estimated BMI. CARDIAC ENZYMES Most recent to 1 oldest [Reference Range]: Total CK [12-191 215 unit/L unit/L] *HI* (11/05/15 6:42 AM) CK MB [0.5-3.6 1.0 ng/mL ng/mL] (11/05/15 6:42 AM) CK MB Index 0.5 [0.0-2.5] (11/05/15 6:42 AM) Troponin-I 0.03 ng/mL [0.00-0.40 ng/mL] (11/05/15 6:42 AM) ENDOCRINOLOGY Most recent to 1 oldest [Reference Range]: S Preg [Negative] Positive *NA* (11/05/15 6:42 AM) URINE AND STOOL Most recent to 1 oldest [Reference Range]: UA Turbidity [Clear] Clear (11/05/15 6:55 AM) UA Color Ltyellow *NA* (11/05/15 6:55 AM) UA pH [5.0-8.0] 7.0 (11/05/15 6:55 AM) UA Spec Grav 1.001 [<=1.030] (11/05/15 6:55 AM) UA Glucose [Negative Negative mg/dL mg/dL] *NA* (11/05/15 6:55 AM) UA Blood [Negative] Small *ABN* (11/05/15 6:55 AM) UA Ketones [Negative Negative mg/dL mg/dL] *NA* (11/05/15 6:55 AM) UA Protein [Negative Negative mg/dL mg/dL] (11/05/15 6:55 AM) UA Urobilinogen <=1.0 mg/dL [0.1-1.0 mg/dL] *NA* (11/05/15 6:55 AM) UA Bili [Negative] Negative *NA* (11/05/15 6:55 AM) UA Leuk Est Negative [Negative] (11/05/15 6:55 AM) UA Nitrite Negative [Negative] (11/05/15 6:55 AM) UA WBC [0-5 /HPF] <1 /HPF (11/05/15 6:55 AM) UA RBC [0-2 /HPF] <1 /HPF (11/05/15 6:55 AM) UA Sq Epi [Few /LPF] Occasional /LPF *NA* (11/05/15 6:55 AM) UA Hyal Cast [0-2 1 /LPF /LPF] (11/05/15 6:55 AM) HEMATOLOGY Most recent to 1 oldest [Reference Range]: WBC [3.7-10.4 K/CMM] 9.0 K/CMM (11/05/15 6:42 AM) RBC [4.20-5.40 4.55 M/CMM M/CMM] (11/05/15 6:42 AM) Hgb [12.0-16.0 g/dL] 12.6 g/dL (11/05/15 6:42 AM) Hct [36.0-48.0 %] 39.7 % (11/05/15 6:42 AM) MCV [80.0-98.0 fL] 87.1 fL (11/05/15 6:42 AM) MCH [27.0-31.0 pg] 27.7 pg (11/05/15 6:42 AM) MCHC [32.0-36.0 31.8 g/dL g/dL] *LOW* (11/05/15 6:42 AM) RDW [11.5-14.5 %] 14.4 % (11/05/15 6:42 AM) Platelet [133-450 329 K/CMM K/CMM] (11/05/15 6:42 AM) MPV [7.4-10.4 fL] 8.5 fL (11/05/15 6:42 AM) Segs [45.0-75.0 %] 64.8 % (11/05/15 6:42 AM) Lymphocytes 25.9 % [20.0-40.0 %] (11/05/15 6:42 AM) Monocytes [2.0-12.0 6.5 % %] (11/05/15 6:42 AM) Eosinophils [0.0-4.0 2.1 % %] (11/05/15 6:42 AM) Basophils [0.0-1.0 0.7 % %] (11/05/15 6:42 AM) Segs-Bands # 5.8 K/CMM [1.5-8.1 K/CMM] (11/05/15 6:42 AM) Lymphocytes # 2.3 K/CMM [1.0-5.5 K/CMM] (11/05/15 6:42 AM) Monocytes # [0.0-0.8 0.6 K/CMM K/CMM] (11/05/15 6:42 AM) Eosinophils # 0.2 K/CMM [0.0-0.5 K/CMM] (11/05/15 6:42 AM) Basophils # [0.0-0.2 0.1 K/CMM K/CMM] (11/05/15 6:42 AM) Immunizations Vaccine Date Refusal Reason measles/mumps/rubella virus vaccine 06/09/14 Procedures Procedure Date Related Diagnosis Body Site [...]
--- NOTE | 2020-02-25 00:41 | Emergency Department Note ---
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 SWELLING TO AREA BUT NOTED FULL ROM. PT STATES SHE HAD ANXIETY ATTACK AFTER THE FALL SO SHE TOOK ONE OF HER XANAX SHE HAS FOR HER ANXIETY. . Historian: Patient Arrival Mode: Car Onset (how long ago): hour(s) (2) Location: right elbow Quality: dull Radiation: Denies non-radiation, Denies back, Denies neck, Denies extremity, Denies abdomen, Denies periumbilical, Denies flank, Denies proximal, Denies distal, Denies other Severity: mild Onset quality: sudden Duration (how long): hour(s) (2) Timing of current episode: constant Progression: unchanged Chronicity: new Context: Denies recent illness, Denies recent surgery, Denies recent immobilization, Denies recent travel, Denies trauma/injury, Denies new medications, Denies hx of DVT/PE, Denies non-compliance w/ medications, Denies other Relieving factors: none Exacerbating factors: none Associated symptoms: Reports denies other symptoms Treatments prior to arrival: none Past Medical/Family History Physician Review I have reviewed the patient's past medical and family history. Any updates have been documented here. Past Medical History Recent Fever: No Clinical Suspicion of Infectio: No New/Unexplained Change in Ment: No Past Medical History: Hypertension, Anxiety Past Surgical History: None Social History Smoking Cessation: Never Smoker Alcohol Use: None Any Illegal Drug Use: No Physically hurt or threatened: No Other Any Pre-Existing Lines (PICC,: No Review of Systems Review of Systems Constitutional: Reports no symptoms EENTM: Reports no symptoms Cardiovascular: Reports no symptoms Respiratory: Reports no symptoms Gastrointestinal: Reports no symptoms Genitourinary: Reports no symptoms Musculoskeletal: Reports as per HPI Integumentary: Reports no symptoms Neurological: Reports no symptoms Psychological: Reports no symptoms Endocrine: Reports no symptoms Hematological/Lymphatic: Reports no symptoms Physical Exam Related Data Allergies: Coded Allergies: minocycline (Verified Allergy, Unknown, 02/25/20) Triage Vital Signs Vital Signs Date Time Temp Pulse Resp B/P (MAP) Pulse Ox O2 Delivery O2 Flow Rate FiO2 02/25/20 00:08 97.9 96 18 191/94 98 Room Air Vital signs reviewed: Yes Physical Exam CONSTITUTIONAL Constitutional: Present well-developed, Present well-nourished HENT HENT: Present normocephalic, Present atraumatic, Present oropharynx clear/moist, Present nose normal HENT L/R: Present left ext ear normal, Present right ext ear normal EYES Eyes: Reports PERRL, Reports conjunctivae normal NECK Neck: Present ROM normal PULMONARY Pulmonary: Present effort normal, Present breath sounds normal CARDIOVASCULAR Cardiovascular: Present regular rhythm, Present heart sounds normal, Present capillary refill normal, Present normal rate GASTROINTESTINAL Abdominal: Present soft, Present nontender, Present bowel sounds normal GENITOURINARY Genitourinary: Present exam deferred SKIN Skin: Present warm, Present dry MUSCULOSKELETAL Musculoskeletal: Present ROM normal, Present other (rigt elbow swelling) NEUROLOGICAL Neurological: Present alert, Present oriented x 3, Present no gross motor or sensory deficits PSYCHOLOGICAL Psychological: Present mood/affect normal, Present judgement normal Results Imaging Imaging results reviewed: Yes Assessment & Plan Medical Decision Making MDM FX DISLOCATION Reassessment Reassessment time: 00:40 Reassessment BETTER Assessment & Plan Final Impression: (1) Contusion of right elbow (2) Acute pain due to trauma Depart Disposition: HOME, SELF-CARE Last Vital Signs Date Time Temp Pulse Resp B/P (MAP) Pulse Ox O2 Delivery O2 Flow Rate FiO2 02/25/20 00:08 97.9 96 18 191/94 98 Room Air Home Meds Reported Medications Escitalopram Oxalate (LEXAPRO) 10 Mg Tablet, 10 MG PO DAILY, #30 TAB 02/25/20 Alprazolam (XANAX) 0.5 Mg Tablet 02/25/20 Labetalol Hcl (LABETALOL HCL) 100 Mg Tablet, 100 MG PO BID, #30 TAB 02/25/20 LISA CAUSEY MD Feb 25, 2020 00:41
--- NOTE | 2020-02-25 00:42 | Diagnostic Imaging Report ---
ELBOW 3 VIEW RT - HOPD - 3 views HISTORY: Pain COMPARISON: None available. FINDINGS: Bones: No acute displaced fracture. Osseous alignment is within normal limits. Joints: The joint spaces are well-maintained. Soft tissues: Posterior elbow soft tissue swelling. IMPRESSION: No acute displaced fracture or dislocation of the right elbow. Posterior elbow soft tissue swelling, could represent a hematoma or less likely olecranon bursitis. Signed by: Dr. Ilan Villasenor MD on 02/25/2020 12:39 AM
[2020-02-25 00:54] VITALS: BP 168/83
== END 2020-02-25 00:52 | disposition home or self-care (01) ==
LOC: FSED 00:25
DX: S50.01XA Contusion of right elbow, initial encounter (principal); W06.XXXA Fall from bed, initial encounter; Y93.84 Activity, sleeping; Y92.003 Bedroom of unspecified non-institutional (private) residence as the place of occurrence of the external cause; I10 Essential (primary) hypertension; F41.9 Anxiety disorder, unspecified
CPT/HCPCS: 99283

== ENCOUNTER 2020-07-16 10:13 | Emergency (ER) | payer OTHER ==
[~2020-07-16] VITALS: Ht 165.1 cm; Wt 145.1 kg
[~2020-07-16 10:13] MED LIST: LABETALOL HCL100 MG PO; LEXAPRO10 MG PO; XANAX0.5 MG
[2020-07-16 13:26] LABS: ALANINE AMINOTRANSFERASE 46 IU/L (0-55); ALBUMIN 3.6 g/dL (3.5-5.0); ALBUMIN/GLOBULIN RATIO 0.9 (0.8-2.0); ALKALINE PHOSPHATASE 78 IU/L (40-150); ANION GAP 15.6 mmol/L (8-16); BLOOD UREA NITROGEN 10 mg/dL (7-26); BUN/CREATININE RATIO 16 (6-25); CALCIUM 8.7 mg/dL (8.4-10.2); CARBON DIOXIDE 22 mmol/L (22-29); CHLORIDE 101 mmol/L (98-107); CREATININE, SERUM 0.63 mg/dL (0.57-1.11); EST GLOMERULAR FILTRATION RATE > 60 ML/MIN (60-); GLUCOSE 103 mg/dL (74-118); POTASSIUM 4.6 mmol/L (3.5-5.1); SODIUM 134 mmol/L (136-145)
[2020-07-16 14:44] VITALS: BP 148/91
== END 2020-07-16 14:46 | disposition home or self-care (01) ==
LOC: FSED 10:38
DX: O03.9 Complete or unspecified spontaneous abortion without complication (principal); N83.201 Unspecified ovarian cyst, right side; I10 Essential (primary) hypertension; F41.9 Anxiety disorder, unspecified; Z88.1 Allergy status to other antibiotic agents
CPT/HCPCS: 36415; 76801; 80053; 81003; 81025; 84702; 85025; 86900; 99284

== ENCOUNTER 2021-11-13 02:35 | Emergency (ER) | payer OTHER ==
[~2021-11-13] VITALS: Ht 165.1 cm; Wt 145.1 kg
[2021-11-13] MEDS ORDERED: Morphine 4mg Syringe 4 MG/ML INJ IV STA (02:40)
[2021-11-13] MEDS ORDERED: SODIUM CHLORIDE 0.9% 1000ML 1,000 ML IV STA (02:40)
[2021-11-13] MEDS ORDERED: ONDANSETRON HCL INJ 2MG/ML 2ML 2 MG/ML VIAL IV STA (02:40)
[2021-11-13 02:48] LABS: BASOPHILS # (AUTO) 0.1 (0.0-0.1); BASOPHILS % 0.5 % (0.0-1.0); EOSINOPHILS # (AUTO) 0.2 (0.0-0.4); EOSINOPHILS % 2.4 % (0.0-6.0); HEMATOCRIT 37.9 % (34.2-44.1); HEMOGLOBIN 12.2 g/dL (12.0-16.0); LYMPHOCYTES # (AUTO) 2.9 (1.0-3.2); LYMPHOCYTES % 31.6 % (18.0-39.1); MEAN CORPUSCULAR HEMOGLOBIN 29.7 pg (28-32); MEAN CORPUSCULAR HGB CONC 32.2 g/dL (31-35); MEAN CORPUSCULAR VOLUME 92.2 fL (81-99); MONOCYTES # (AUTO) 0.6 (0.2-0.8); MONOCYTES % 6.4 % (4.4-11.3); NEUTROPHILS # (AUTO) 5.4 (2.1-6.9); NEUTROPHILS % 58.8 % (38.7-80.0); PLATELET COUNT 299 x10e3/uL (140-360); RED BLOOD COUNT 4.11 x10e6/uL (3.6-5.1); RED CELL DISTRIBUTION WIDTH 13.6 % (11.7-14.4)
[2021-11-13 03:09] LABS: ALBUMIN 2.9 g/dL (3.5-5.0); ALBUMIN/GLOBULIN RATIO 0.6 (0.8-2.0); CALCIUM 8.3 mg/dL (8.4-10.2); CREATININE, SERUM 0.65 mg/dL (0.57-1.11)
[2021-11-13] MEDS ORDERED: IOPAMIDOL 370 MG/ML 100 ML INFUS..BTL INJ ONE (03:31)
[2021-11-13 04:20] LABS: CLARITY,URINE SL CLOUDY (CLEAR); COLOR,URINE YELLOW (YELLOW)
[2021-11-13 04:21] LABS: KETONES,URINE NEGATIVE (NEGATIVE); LEUKOCYTE ESTERASE ,URINE NEGATIVE (NEGATIVE); NITRITE,URINE NEGATIVE (NEGATIVE); PROTEIN,URINE DIPSTICK 2+ (NEGATIVE); URINE UROBILINOGEN 0.2 mg/dL (0.2 - 1)
[2021-11-13 04:26] LABS: AMORPHOUS SEDIMENT,URINE MODERATE (FEW); BACTERIA,URINE FEW /HPF; EPITHELIAL CELLS,URINE MODERATE /LPF; WBC,URINE (MAN) 0-5 /HPF (0-5)
[2021-11-13] MEDS ORDERED: IBUPROFEN600 MG PO (07:11)
[2021-11-13 07:17] VITALS: BP 140/69
== END 2021-11-13 07:18 | disposition home or self-care (01) ==
LOC: ER 02:38
DX: R10.2 Pelvic and perineal pain (principal); N83.201 Unspecified ovarian cyst, right side; R11.2 Nausea with vomiting, unspecified; K80.20 Calculus of gallbladder without cholecystitis without obstruction; K57.90 Diverticulosis of intestine, part unspecified, without perforation or abscess without bleeding; K76.0 Fatty (change of) liver, not elsewhere classified; I10 Essential (primary) hypertension; F41.9 Anxiety disorder, unspecified; Z20.822 Contact with and (suspected) exposure to COVID-19
CPT/HCPCS: 36415; 74177; 76830; 76856; 80053; 81001; 83690; 84702; 85025; 99284; J2270; J2405; J7030; Q9967; U0002

== ENCOUNTER 2024-05-04 23:37 | Emergency (ER) | payer BC, OTHER ==
[~2024-05-04] VITALS: Ht 165.1 cm; Wt 161.0 kg
[~2024-05-04 23:37] MED LIST changes: +IBUPROFEN600 MG PO
[2024-05-04 23:48] VITALS: PULSE 83; RESP 22; TEMP 97.9
[2024-05-05 00:14] LABS: BASOPHILS # (AUTO) 0.1 (0.0-0.1); BASOPHILS % 0.5 % (0.0-1.0); EOSINOPHILS # (AUTO) 0.3 (0.0-0.4); EOSINOPHILS % 2.5 % (0.0-6.0); HEMATOCRIT 39.4 % (34.2-44.1); HEMOGLOBIN 12.5 g/dL (12.0-16.0); LYMPHOCYTES # (AUTO) 3.1 (1.0-3.2); LYMPHOCYTES % 28.8 % (18.0-39.1); MEAN CORPUSCULAR HEMOGLOBIN 29.8 pg (28-32); MEAN CORPUSCULAR HGB CONC 31.7 g/dL (31-35); MONOCYTES # (AUTO) 0.7 (0.2-0.8); MONOCYTES % 6.8 % (4.4-11.3); NEUTROPHILS # (AUTO) 6.6 (2.1-6.9); NEUTROPHILS % 60.8 % (38.7-80.0); PLATELET COUNT 326 x10e3/uL (140-360); RED BLOOD COUNT 4.19 x10e6/uL (3.6-5.1); RED CELL DISTRIBUTION WIDTH 13.6 % (11.7-14.4); WHITE BLOOD COUNT 10.82 x10e3/uL (4.8-10.8)
[2024-05-05 00:28] LABS: ALBUMIN 3.3 g/dL (3.5-5.0); ALBUMIN/GLOBULIN RATIO 0.8 (0.8-2.0); ANION GAP 15.8 mmol/L (8-16); BILIRUBIN,TOTAL 0.3 mg/dL (0.2-1.2); CALCIUM 9.4 mg/dL (8.4-10.2); CREATININE, SERUM 0.69 mg/dL (0.57-1.11); POTASSIUM 3.8 mmol/L (3.5-5.1); TOTAL PROTEIN 7.7 g/dL (6.5-8.1)
[2024-05-05 00:35] LABS: TROPONIN I 0.008 ng/mL (0-0.300)
[2024-05-05 00:36] LABS: OPIATES SCREEN,URINE NEGATIVE (NEGATIVE)
[2024-05-05 00:37] LABS: AMPHETAMINES SCREEN,URINE NEGATIVE (NEGATIVE); BENZODIAZEPINES SCREEN,URINE NEGATIVE (NEGATIVE); CANNABINOIDS SCREEN,URINE NEGATIVE (NEGATIVE); METHADONE SCREEN, URINE NEGATIVE (NEGATIVE); PHENCYCLIDINE SCREEN,URINE NEGATIVE (NEGATIVE); PREGNANCY TEST, URINE NEGATIVE (NEGATIVE)
[2024-05-05 01:56] VITALS: BP 134/59; PULSE 75; RESP 20; TEMP 98.1; O2SAT 97
[2024-05-05] MEDS ORDERED: ONDANSETRON ODT4 MG PO (18:29)
== END 2024-05-05 01:06 | disposition home or self-care (01) ==
LOC: ER 23:52
DX: R42 Dizziness and giddiness (principal); R91.8 Other nonspecific abnormal finding of lung field; I10 Essential (primary) hypertension; R73.03 Prediabetes; F41.9 Anxiety disorder, unspecified; E28.2 Polycystic ovarian syndrome
CPT/HCPCS: 36415; 71045; 80053; 80307; 81025; 82550; 82948; 83690; 83880; 84484; 85025; 93005; 99284

== ENCOUNTER 2025-03-06 05:12 | Emergency (ER) | payer BC ==
[~2025-03-06] VITALS: Ht 165.1 cm; Wt 143.8 kg
[~2025-03-06 05:12] MED LIST changes: +ONDANSETRON ODT4 MG PO
[2025-03-06 05:20] VITALS: PULSE 82; RESP 18; TEMP 98.3
[2025-03-06] MEDS ORDERED: KETOROLAC TROMETHAMINE 60 MG/2 ML VIAL ONE (06:12)
[2025-03-06] MEDS: PREDNISONE 20 MG TAB PO STA (06:14)
[2025-03-06] MEDS: KETOROLAC TROMETHAMINE 60 MG/2 ML VIAL IM STA (06:17)
[2025-03-06] MEDS ORDERED: KETOROLAC TROME10 MG PO (06:34)
[2025-03-06] MEDS ORDERED: PREDNISONE20 MG PO (06:34)
[2025-03-06] MEDS ORDERED: ULTRAM 50MG50 MG PO (06:34)
[2025-03-06 06:44] VITALS: BP 146/74; PULSE 82; RESP 18; TEMP 98.3; O2SAT 94
== END 2025-03-06 06:44 | disposition home or self-care (01) ==
LOC: FSED 05:38
DX: M54.41 Lumbago with sciatica, right side (principal); I10 Essential (primary) hypertension; F41.9 Anxiety disorder, unspecified; R73.03 Prediabetes; E28.2 Polycystic ovarian syndrome; E66.01 Morbid (severe) obesity due to excess calories
CPT/HCPCS: 72100; 96372; 99283; J1885; J7512